=== PATIENT | female | born 1950 | race Caucasian/White ===

== ENCOUNTER 2017-12-30 06:08 | Inpatient (IN) | payer MEDICARE ==
[~2017-12-30 06:08] MED LIST: Buffered Lidocaine 0.9% SYRIN* 5 ML/SYR SYRINGE INTRADERM ONE; Dexamethasone IV* 4 MG/ML 1 ML (4 MG) IV SLOW PU ONE; Famotidine IV* 10 MG/ML 2 ML (20 mg) IV ONE
[2017-12-30] MEDS ORDERED: Dexamethasone IV* 4 MG/ML 1 ML (4 MG) ONE (06:28)
[2017-12-30] MEDS ORDERED: Famotidine IV* 10 MG/ML 2 ML (20 mg) ONE (06:28)
[2017-12-30] MEDS ORDERED: Clindamycin 900 MG IVPREMIX(* 900 MG/50 ML SDV IV ONE (06:28)
[2017-12-30] MEDS ORDERED: HYDROcodone/ACETAMIN 5-325 MG* 1 TAB PO PRN (07:18)
[2017-12-30] MEDS ORDERED: oxyCODONE/Acetamin 5/325 MG* TAB PO PRN (07:18)
[2017-12-30] MEDS ORDERED: Bupivacaine 0.5% SDV PF* 30ML VIAL ONE (07:18)
[2017-12-30] MEDS ORDERED: Naloxone* 0.4 MG/ML 1 ML VIAL IV PRN (07:18)
[2017-12-30] MEDS ORDERED: PROCHLORPERAZINE INJ 5 MG/ML 2 ML VIAL IV PRN (07:18)
[2017-12-30] MEDS ORDERED: Propofol* 10 MG/ML 20 ML BTL IV PUSH ONE (07:31)
[2017-12-30] MEDS ORDERED: Mivacurium Chloride* 20 MG/10 ML VIAL IV ONE (07:31)
[2017-12-30] MEDS ORDERED: Lidocaine 2% PF * 5 ML VIAL ONE (07:31)
[2017-12-30] MEDS ORDERED: fentaNYL* 50 MCG/ML 2 ML VIAL (100 MCG VIAL) ONE ×2 (07:32→09:08)
[2017-12-30] MEDS ORDERED: EPHEDrine (Pressors)* 50 MG/ML VIAL ONE (07:50)
[2017-12-30] MEDS ORDERED: Phenylephrine IV* 40 MCG/ML 10 ML SYRINGE ONE (08:05)
[2017-12-30] MEDS ORDERED: Ondansetron INJ* 2 MG/ML VIAL IV ONE (08:20)
[2017-12-30] MEDS ORDERED: oxyCODONE/Acetamin 5/325 MG* TAB ONE (09:08)
[2017-12-30] MEDS: fentaNYL* 50 MCG/ML 2 ML VIAL (100 MCG VIAL) IV PRN ×2 (09:11→09:20)
[2017-12-30] MEDS ORDERED: Temazepam CAP* 15 MG PO PRN (09:14)
[2017-12-30] MEDS ORDERED: Ondansetron INJ* 2 MG/ML VIAL IV PRN (09:14)
[2017-12-30] MEDS ORDERED: diPHENhydraMINE IV* 50 MG/ML 1 ml VIAL (BENADRYL) IV PRN (09:14)
[2017-12-30] MEDS ORDERED: Morphine VIAL* 4 MG/ML VIAL (1 ml vial) IV PRN (09:14)
[2017-12-30] MEDS ORDERED: Albuterol HFA INHALER* 8 gm MDI INH PRN (09:21)
[2017-12-30] MEDS ORDERED: Albuterol 2.5 MG/3 ML NEB.SOL* (0.083%) INH PRN (09:21)
[2017-12-30] MEDS ORDERED: oxyCODONE TAB* 5 MG TAB PO PRN (09:21)
[2017-12-30] MEDS ORDERED: Lactobacillus Acidophilus* 1 TAB PO PRN (09:21)
[2017-12-30] MEDS ORDERED: Carbidopa/Levodop 25/100 MG TAB(*) PO SCH (09:30)
[2017-12-30] MEDS ORDERED: Gabapentin CAP(*) 300 MG PO SCH (10:00)
[2017-12-30] MEDS ORDERED: Enoxaparin(*) 40 MG/0.4 ML SYR SUBCUT SCH (10:00)
[2017-12-30] MEDS ORDERED: LORazepam TAB(*) 1 MG PO SCH (13:00)
[2017-12-30] MEDS: Carbidopa/Levodop 25/100 MG TAB(*) PO SCH ×4 (13:12→21:26)
[2017-12-30] MEDS: Polyethylene Glycol 3350* 17 GM PACKET PO SCH ×2 (13:13→21:28)
[2017-12-30] MEDS: Docusate CAP* 100 MG PO SCH ×2 (13:13→21:28)
[2017-12-30] MEDS ORDERED: Gabapentin CAP(*) 300 MG PO ONE (13:15)
[2017-12-30] MEDS ORDERED: Gabapentin CAP(*) 300 MG ONE (13:21)
[2017-12-30] MEDS: Gabapentin CAP(*) 300 MG PO SCH ×2 (13:23→17:44)
[2017-12-30] MEDS: oxyCODONE TAB* 5 MG TAB PO PRN ×3 (13:26→22:53)
[2017-12-30] MEDS: Clindamycin 600 MG IVPREMIX(* 600 MG/50 ML SDV IV SCH (16:00)
[2017-12-30] MEDS: Lactulose* 15 ML UDC PO SCH (17:41)
[2017-12-30] MEDS ORDERED: Docusate CAP* 100 MG PO SCH (21:00)
[2017-12-30] MEDS: Magnesium Hydroxide LIQ* 30 ML UDC PO SCH (21:23)
[2017-12-30] MEDS: LORazepam TAB(*) 1 MG PO SCH (21:28)
[2017-12-30] MEDS: Montelukast Sodium TAB* 10 MG PO SCH (21:29)
[2017-12-30] MEDS ORDERED: Ondansetron 40 MG VIAL* 2 MG/ML 20 ML VIAL IV PRN (23:47)
[2017-12-31] MEDS: Clindamycin 600 MG IVPREMIX(* 600 MG/50 ML SDV IV SCH ×2 (00:15→08:41)
[2017-12-31] MEDS: Cyclobenzaprine TAB* 10 MG PO PRN ×2 (00:21→08:41)
[2017-12-31] MEDS: Carbidopa/Levodop 25/100 MG TAB(*) PO SCH ×7 (01:55→22:15)
[2017-12-31] MEDS: LORazepam TAB(*) 1 MG PO SCH ×5 (01:57→22:14)
[2017-12-31] MEDS: Gabapentin CAP(*) 300 MG PO SCH ×4 (02:00→19:23)
[2017-12-31] MEDS: oxyCODONE TAB* 5 MG TAB PO PRN ×2 (06:10→12:47)
[2017-12-31] MEDS: Sertraline* 25 MG TAB PO SCH (06:11)
[2017-12-31] MEDS: Folic Acid TAB* 1 MG PO SCH (06:11)
[2017-12-31] MEDS: Omeprazole CAP* 20 MG PO SCH (06:14)
--- NOTE | 2017-12-31 08:07 | OP ---
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 OPERATIVE PROCEDURE: Extensive posterior medial release and plantar fascia release. DESCRIPTION OF PROCEDURE: The patient was taken to the operating room, general anesthesia administered. We made a 8 cm longitudinal incision centered on the medial malleolus. Through this incision proximally, we isolated the Achilles tendon and performed a 5 cm longitudinal Z lengthening. We then opened up the sheath, the posterior tibial tendon, and performed a 5 cm Z lengthening of that tendon as well as FDL which lay just deep to it. Once these tendons were out of the way, we dissected further around the posterior tibia to locate the FHL, which was released at this point, not lengthened. We also performed release of the capsule, the posterior tibiotalar joint and the subtalar joint. Neuro- vascular bundle was kept protected. This corrected the ankle to neutral position. We closed the wound after repairing the sheath with 2-0 Vicryl sutures. The Achilles tendon side to side 2-0 Vicryl, posterior tibial side to side 2-0 Vicryl and FDL side to side with 2-0 Vicryl. Subcutaneous closure of 2 -0 Vicryl and hue for the skin. We also performed percutaneous release of the plantar fascia with a 1 cm incision along the proximal medial border. This was also closed with hue. A compression dressing, plaster splint was applied. The patient demonstrated good capillary refill of the toes at the end of the procedure. [id number]/[facility] #: [id number] VISHAL
[2017-12-31] MEDS: Cholecalciferol TAB* 1000 UNITS PO SCH (08:40)
[2017-12-31] MEDS: Prenatal Vitamin TAB PO SCH (08:41)
[2017-12-31] MEDS: Polyethylene Glycol 3350* 17 GM PACKET PO SCH ×3 (08:41→22:14)
[2017-12-31] MEDS: Docusate CAP* 100 MG PO SCH ×3 (08:41→22:13)
[2017-12-31] MEDS: Calcium/Vitamin D TAB 250/125* TAB PO SCH (08:41)
[2017-12-31] MEDS: Magnesium Hydroxide LIQ* 30 ML UDC PO SCH ×2 (08:42→22:14)
[2017-12-31] MEDS: Enoxaparin(*) 40 MG/0.4 ML SYR SUBCUT SCH (08:52)
[2017-12-31] MEDS ORDERED: POTASSIUM 99 MG PO SCH (09:00)
--- NOTE | 2017-12-31 09:00 | PN ---
Progress Note - Progress Note Date of Service: 12/31/17 SOAP: Subjective: [Pt was seen sitting up in chair today. She states that she is having issues with being to cold or too hot. She states that pain is a little better in her foot today than yesterday. She feels unhappy about not being able to move around as she is used to "bopping around the house" when at home. She would like to talk to one of the doctors or the PA that was in the surgery. She denies any chest pain, SOB ] Objective: [General: Pt is alert and awake. NAD MSK, RLE: Dressing is clean, dry and intact. toes are exposed and there is sensation. She is able to slightly wiggle the toes. Able to bend and extend knee. ] Vital Signs Temp 98.5 F 12/31/17 07:35 Pulse 93 12/31/17 07:35 Resp 16 12/31/17 08:48 BP 99/49 12/31/17 07:35 Pulse Ox 92 12/31/17 07:35 Intake & Output 12/30/17 12/31/17 12/31/17 18:59 06:59 18:59 Intake Total 2047 1481.9 Output Total 800 350 Balance 1247 1131.9 Intake: IV Fluids 1405 641.9 ABX - CLINDAMYCIN 52.9 LR 1350 589 IVPB 322 LR 322 Oral 320 840 Output: Urine 800 350 Other: Estimated Void Large Medium # Bowel Movements 0 Estimated Blood Loss MIN Comment # Voids 1 1 Assessment: [S/P Right ankle posterior medial release on 12/30/2017] Plan: [- Continue with current pain medication - Continue with PT/OT -Finish post op abx PMRU consult today ]
[2017-12-31] MEDS: Lactulose* 15 ML UDC PO SCH (19:23)
[2017-12-31] MEDS: Montelukast Sodium TAB* 10 MG PO SCH (22:14)
[2018-01-01] MEDS: LORazepam TAB(*) 1 MG PO SCH ×2 (01:33→09:06)
[2018-01-01] MEDS: Carbidopa/Levodop 25/100 MG TAB(*) PO SCH ×3 (01:34→09:17)
[2018-01-01] MEDS: Gabapentin CAP(*) 300 MG PO SCH ×2 (01:37→06:09)
[2018-01-01] MEDS: Folic Acid TAB* 1 MG PO SCH (06:08)
[2018-01-01] MEDS: Sertraline* 25 MG TAB PO SCH (06:08)
[2018-01-01] MEDS: Omeprazole CAP* 20 MG PO SCH (06:08)
[2018-01-01] MEDS: Magnesium Hydroxide LIQ* 30 ML UDC PO SCH (09:05)
[2018-01-01] MEDS: Enoxaparin(*) 40 MG/0.4 ML SYR SUBCUT SCH (09:05)
[2018-01-01] MEDS: Polyethylene Glycol 3350* 17 GM PACKET PO SCH (09:05)
[2018-01-01] MEDS: Cholecalciferol TAB* 1000 UNITS PO SCH (09:06)
[2018-01-01] MEDS: Calcium/Vitamin D TAB 250/125* TAB PO SCH (09:06)
[2018-01-01] MEDS: Docusate CAP* 100 MG PO SCH (09:06)
[2018-01-01] MEDS: Prenatal Vitamin TAB PO SCH (09:17)
--- NOTE | 2018-01-01 10:38 | PN ---
Progress Note - Progress Note Date of Service: 01/01/18 SOAP: Subjective: [Pt was seen laying in bed this morning. She states that she would like to no longer use the commode. . She states that pain is a little better in her foot today than yesterday. She denies any chest pain, SOB Spoke to the pts nursing staff. They report that the pt has been noncompliant with NWB of the RLE. They also stated that she froze on the commode last night and needed to utilize a milla lift in order to move the pt back to bed and attempt to avoid a fall. [facility] did not accept the pt. Therefore we will start down the necessary path to initiate placement to a rehab facility. ] Objective: [General: Pt is alert and awake. NAD MSK, RLE: Dressing is clean, dry and intact. toes are exposed and there is sensation. She is able to slightly wiggle the toes. Able to bend and extend knee. ] Vital Signs Temp 98.8 F 01/01/18 09:05 Pulse 88 01/01/18 09:05 Resp 16 01/01/18 09:06 BP 97/42 01/01/18 09:05 Pulse Ox 94 01/01/18 09:05 Intake & Output 12/31/17 01/01/18 01/01/18 18:59 06:59 18:59 Intake Total 560 500 360 Output Total 450 600 Balance 110 -100 360 Intake: Oral 560 500 360 Output: Urine 450 600 Other: Estimated Void Medium # Voids 1 Assessment: [S/P Right ankle posterior medial release on 12/30/2017] Plan: [- Continue with current pain medication prn - Continue with PT/OT - Based on information from nursing staff it would be in the best interest of the pt to continue to use the commode - Reviewed what Non weight bearing of the right lower extremity means - Await placement to a rehab facility. ]
[2018-01-01 11:02] VITALS: BP 120/56
== END 2018-01-01 11:20 | DRG 502 ==
LOC: OR 06:08 → SSU 09:14 → OBSVTOIN 12-31 15:00 → SSU 12-31 20:17
PROVIDERS: ADMIT Orthopaedic Surgery; ATTEND Orthopaedic Surgery
PROC: 0LNN0ZZ Release Right Lower Leg Tendon, Open Approach (ICD-10-PCS; principal; 2017-12-31)
PROC: 0KN Muscles, Release (ICD-10-PCS; 2017-12-31)
DX: M24.571 Contracture, right ankle (principal); M48.00 Spinal stenosis, site unspecified; F41.9 Anxiety disorder, unspecified; G20 Parkinson's disease; M21.171 Varus deformity, not elsewhere classified, right ankle; M21.6X1 Other acquired deformities of right foot; Z91.19 Patient's noncompliance with other medical treatment and regimen; Z86.73 Personal history of transient ischemic attack (TIA), and cerebral infarction without residual deficits; Z88.0 Allergy status to penicillin; Z88.2 Allergy status to sulfonamides; Z88.8 Allergy status to other drugs, medicaments and biological substances
CPT/HCPCS: A9270-GY; G8978-GP-CM; G8979-GP-CI; G8987-GO-CL; G8988-GO-CI; G8989-GO-CI; J1100; J1650; J2405; J2704; J3010

== ENCOUNTER 2018-01-01 11:19 | Inpatient (IN) | payer MEDICARE ==
[2018-01-01] MEDS ORDERED: Magnesium Hydroxide LIQ* 30 ML UDC PO PRN (12:37)
[2018-01-01] MEDS ORDERED: Carbidopa/Levodop 25/100 MG TAB(*) ONE (12:39)
[2018-01-01] MEDS: Carbidopa/Levodop 25/100 MG TAB(*) PO ONE ×2 (12:40→12:45)
[2018-01-01] MEDS ORDERED: Albuterol HFA INHALER* 8 gm MDI INH PRN (13:04)
[2018-01-01] MEDS ORDERED: Gabapentin CAP(*) 300 MG ONE (14:49)
[2018-01-01] MEDS: Docusate CAP* 100 MG PO SCH ×2 (15:21→20:48)
[2018-01-01] MEDS: Carbidopa/Levodop 25/100 MG TAB(*) PO SCH ×3 (15:23→20:50)
[2018-01-01] MEDS: LORazepam TAB(*) 1 MG PO SCH ×2 (15:23→20:48)
[2018-01-01] MEDS: Potassium Chlor TAB* 10 MEQ TAB.ER PO SCH (15:30)
[2018-01-01] MEDS ORDERED: oxyCODONE TAB* 5 MG TAB PO PRN (17:58)
[2018-01-01] MEDS: Gabapentin CAP(*) 300 MG PO SCH (18:03)
[2018-01-01] MEDS: Lactulose* 15 ML UDC PO SCH (18:23)
[2018-01-01] MEDS: Montelukast Sodium TAB* 10 MG PO SCH (20:48)
[2018-01-01] MEDS ORDERED: Docusate CAP* 100 MG PO SCH (21:00)
--- NOTE | 2018-01-01 22:35 | HP ---
ADMISSION HISTORY AND PHYSICAL: DATE OF ADMISSION: 01/01/18 REASON FOR ADMISSION: Right ankle release; Parkinson's disease. HISTORY OF PRESENT ILLNESS: Ghazal Garza is a 67-year-old female. She has had Parkinson's disease for several years. She was diagnosed about 6 years ago. 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 She had a left hemiplegia initially, but this resolved. She was left with some memory deficits. About 18 months ago, she was admitted to [facility] after she had an episode of freezing, which was felt to be due to the way she was taking her medications. While in the hospital, they noticed contractures of her feet and ankles. She had a brace put on her left side and not improved, but the right side was never braced. She went to subacute rehab after she was hospitalized and after about a month, her right foot contracture got worse. Due to ongoing contracture and discomfort, she was seen by an orthopedic PA, who sent her to [facility]. She had an AFO fabricated for her right leg. When she first got the AFO, she fell over and fractured her right hip. She went to [facility] and had a right total hip replacement. After that, she went to subacute rehab in [place] where she stayed about 4 weeks. Meanwhile, her AFO had not been used. She was sent to see Dr. Aisha Ware in November with the hope that Botox injection might help. Dr. Ware felt the ankle was contracted and she was well past the point of being assisted with Botox. She was referred on to see Dr. Rousseau, the orthopedic surgeon. Dr. Rousseau felt she had a severely contracted right ankle causing significant functional limitations. He felt at that time, she needed surgery. Dr. Hopper also saw the patient and felt that she would need a posteromedial soft tissue release. She was admitted to [facility] on 12/30/17 and underwent a posterior soft tissue release of the ankle. She was put in a cast postoperatively and made nonweightbearing. Because of her Parkinson's disease, she is felt to have physical therapy and occupational therapy needs. She is now being admitted for inpatient rehab, so that she might return to independent living. PAST MEDICAL HISTORY: Significant for the aforementioned CVA with a hemorrhage. She has a history of Parkinson's disease and asthma. CURRENT MEDICATIONS: Include: 1. Albuterol inhaler. 2. She is on Sinemet 25/100. She takes 2-1/2 tablets 7 times a day. 3. She is on Lovenox and Coumadin for DVT prophylaxis. 4. She is on Neurontin for chronic pain. 5. She takes Ativan and Singulair as well. 6. She is also on Zoloft. ALLERGIES: The patient has allergies listed to PENICILLIN, DEMEROL. She did not tolerate SLOW-RELEASE SINEMET. SOCIAL HISTORY: The patient lives with her daughter and son-in-law in a two- lotus house. Her bedroom is upstairs. She was walking with a walker prior to admission. She is a nonsmoker, nondrinker. She also has had a wheelchair prior to admission. REVIEW OF SYSTEMS: The patient reports no current shortness of breath or chest pain. PHYSICAL EXAMINATION VITAL SIGNS: The patient's temperature is 98.8, blood pressure is 140/72, pulse 96, respirations 20. HEENT: Her extraocular movements appear to be intact. NECK: Her neck was supple. LUNGS: Sounded clear to auscultation bilaterally. HEART: Sounds are regular. S1 and S2 are audible. ABDOMEN: Soft and nontender. EXTREMITIES: Her right ankle is in a cast. She is able to wiggle the toes. NEUROLOGIC: She is awake, alert, oriented. Muscle strength appear to be 5/5, except around the right leg, which was 3/5 secondary to pain. FUNCTIONAL EXAM: She transfers with max assist. ASSESSMENT: 1. Parkinson's disease. 2. Posterolateral release of the right ankle contracture. PLAN: Integrate her into a comprehensive and therapeutic rehab program with the following goals: 1. Physical Therapy will work with the patient. They are going to work on functional transfer training, ambulation training, wheelchair mobilities. 2. Occupational Therapy will see the patient and work on her activities of daily living including toileting and toilet transfers. 3. Lovenox for DVT prophylaxis. 4. Adequate analgesia. 5. Her bowels will be regulated. 6. director of convention services will be closely involved to make sure that any services and equipment that the patient requires are in place prior to discharge. 7. Continue Neurontin for chronic pain. 8. For her asthma, we will continue her albuterol inhaler as well as her Singulair. 9. Family training as appropriate. 10. Home with appropriate services. ESTIMATED LENGTH OF STAY: 10 to 14 days. [id number]/[facility] #: [id number] VISHAL
[2018-01-02] MEDS: Carbidopa/Levodop 25/100 MG TAB(*) PO SCH ×7 (01:34→20:58)
[2018-01-02] MEDS: Gabapentin CAP(*) 300 MG PO SCH ×4 (01:35→18:05)
[2018-01-02] MEDS: LORazepam TAB(*) 1 MG PO SCH ×4 (01:37→20:57)
[2018-01-02 05:58] LABS: Hematocrit 32 % (35-47); Hemoglobin 11.1 g/dl (12.0-16.0); Mean Platelet Volume 7.1 um3 (7.4-10.4); Platelet Count 155 10^3/ul (150-450)
[2018-01-02] MEDS: Omeprazole CAP* 20 MG PO SCH (06:06)
[2018-01-02] MEDS: Sertraline* 25 MG TAB PO SCH (06:07)
[2018-01-02 06:20] LABS: EGFR Non-African American 70.5 (>60)
[2018-01-02] MEDS: Potassium Chlor TAB* 10 MEQ TAB.ER PO SCH (07:05)
[2018-01-02] MEDS: Polyethylene Glycol 3350* 17 GM PACKET PO SCH (08:51)
[2018-01-02] MEDS: Enoxaparin(*) 40 MG/0.4 ML SYR SUBCUT SCH (08:52)
[2018-01-02] MEDS: Docusate CAP* 100 MG PO SCH ×3 (08:53→21:03)
[2018-01-02] MEDS: Folic Acid TAB* 1 MG PO SCH (08:53)
[2018-01-02] MEDS: Calcium/Vitamin D TAB 250/125* TAB PO SCH (08:53)
[2018-01-02] MEDS: Cholecalciferol TAB* 1000 UNITS PO SCH (08:53)
[2018-01-02] MEDS: Prenatal Vitamin TAB PO SCH (09:26)
[2018-01-02] MEDS: Lactulose* 15 ML UDC PO SCH (18:04)
--- NOTE | 2018-01-02 19:57 | PN ---
Progress Note Date of Service: 01/02/18 Note: SENDY GILLETTE was visited. Therapy notes read and reviewed. Some trouble with pain in the ankle. Also spasms, but Flexeril helps those. Tremors tonight Current Medications: Active Medications Generic Name Dose Route Start Last Admin Trade Name Freq PRN Reason Stop Dose Admin Acetaminophen 650 mg 01/01/18 12:37 Tylenol Tab* PO Q6H PRN FEVER/PAIN Albuterol 2 puff 01/01/18 13:04 Ventolin Hfa Inhaler* INH Q6H PRN SOB/WHEEZING Calcium/Vitamin D 1 tab 01/02/18 09:00 01/02/18 08:53 Oscal D Tab 250/125* PO 1 tab DAILY ARNIE Administration Carbidopa/Levodopa 2.5 tab 01/01/18 15:00 01/02/18 14:53 Sinemet 25/100 Tab(*) PO 2.5 tab 0600,0900,1200,1500 ARNIE Administration Carbidopa/Levodopa 2.5 tab 01/01/18 18:00 01/02/18 18:06 Sinemet 25/100 Tab(*) PO 2.5 tab 0130,1800,2100 ARNIE Administration Cholecalciferol 2,000 units 01/02/18 09:00 01/02/18 08:53 Vitamin D Tab* PO 2,000 units DAILY ARNIE Administration Docusate Sodium 100 mg 01/01/18 14:00 01/02/18 12:16 Colace Cap* PO Not Given TID ARNIE Enoxaparin Sodium 40 mg 01/02/18 09:00 01/02/18 08:52 Lovenox(*) SUBCUT 40 mg Q24H ARNIE Administration Folic Acid 1 mg 01/02/18 09:00 01/02/18 08:53 Folvite Tab* PO 1 mg DAILY ARNIE Administration Gabapentin 600 mg 01/01/18 18:00 01/02/18 18:05 Neurontin Cap(*) PO 600 mg 0600,1800 ARNIE Administration Gabapentin 900 mg 01/02/18 01:30 01/02/18 12:12 Neurontin Cap(*) PO 900 mg 0130,1200 ARNIE Administration Lactulose 15 ml 01/01/18 18:00 01/02/18 18:04 Lactulose* PO Not Given 1800 ARNIE Lorazepam 1 mg 01/01/18 15:00 01/02/18 14:53 Ativan Tab(*) PO 1 mg 0130,0900,1500,2100 ARNIE Administration Magnesium Hydroxide 30 ml 01/01/18 12:37 Milk Of Magnesia Liq* PO Q6H PRN CONSTIPATION Montelukast Sodium 10 mg 01/01/18 21:00 01/01/18 20:48 Singulair Tab* PO 10 mg BEDTIME ARNIE Administration Multivitamins 1 tab 01/02/18 09:00 01/02/18 09:26 Vitamin Tab* PO 1 tab DAILY ARNIE Administration Omeprazole 20 mg 01/02/18 06:00 01/02/18 06:06 Prilosec Cap* PO 20 mg 0600 ARNIE Administration Oxycodone HCl 5 mg 01/01/18 17:58 Roxycodone Tab* PO Q4H PRN PAIN - MODERATE TO SEVERE Oxycodone HCl 10 mg 01/01/18 17:58 Roxycodone Tab* PO Q4H PRN PAIN - SEVERE Polyethylene Glycol/Electrolytes 17 gm 01/02/18 09:00 01/02/18 08:51 Miralax* PO 17 gm DAILY ARNIE Administration Potassium Chloride 10 meq 01/01/18 16:00 01/02/18 07:05 Klor Con Er Tab* PO 10 meq DAILY ARNIE Administration Senna 2 tab 01/01/18 12:37 Senokot Tab* PO BEDTIME PRN CONSTIPATION Sertraline HCl 25 mg 01/02/18 06:00 01/02/18 06:07 Zoloft* PO 25 mg 0600 ARNIE Administration Vital Signs: Vital Signs Temp Pulse Resp BP Pulse Ox 98.2 F 95 18 150/85 97 01/02/18 15:53 01/02/18 15:53 01/02/18 18:12 01/02/18 15:53 01/02/18 15:53 Lab Results: Laboratory Results - last 24 hr 01/02/18 01/02/18 05:51 05:51 Hgb 11.1 L Hct 32 L Plt Count 155 MPV 7.1 L BUN 19 Creatinine 0.81 Est GFR ( Amer) 90.7 Est GFR (Non-Af Amer) 70.5 Exam: HEENT: EOMI LUNGS: Clear HEART: regular rhythm ABDOMEN: Soft, +BS EXTREMITIES: Right ankle in cast. NEUROLOGIC: Resting tremor in legs. Exam non focal Assessment/Plan: 1. Right ankle release: NWB RLE. PT/OT 2. Parkinsons Disease: Sinemet @ 0600, 0900, 1200, 1500, 1800, 2100 and 0130. Ativan. 3. DVT Prophylaxis: Lovenox 4. Analgesia: Oxycodone as needed/Tylenol 5. Asthma: Singulair/Albuterol 6. Advanced Directives: Full code 01/02/18 20:02
[2018-01-02] MEDS: Montelukast Sodium TAB* 10 MG PO SCH (20:57)
[2018-01-03] MEDS: Carbidopa/Levodop 25/100 MG TAB(*) PO SCH ×7 (01:32→20:43)
[2018-01-03] MEDS: Gabapentin CAP(*) 300 MG PO SCH ×4 (01:33→17:20)
[2018-01-03] MEDS: LORazepam TAB(*) 1 MG PO SCH ×4 (01:33→20:43)
[2018-01-03] MEDS: Omeprazole CAP* 20 MG PO SCH (06:01)
[2018-01-03] MEDS: Sertraline* 25 MG TAB PO SCH (06:01)
[2018-01-03 06:28] LABS: ABS Basophils 0 10^3/ul (0-0.2); ABS Eosinophils 0.2 10^3/ul (0-0.6); ABS Lymphocytes 0.9 10^3/ul (1.0-4.8); ABS Monocytes 0.4 10^3/ul (0-0.8); ABS Neutrophils 2.9 10^3/ul (1.5-7.7); ABS Nucleated RBC 0 10^3/ul; Eosinophil % 5.4 % (0-6); Hematocrit 34 % (35-47); Hemoglobin 11.7 g/dl (12.0-16.0); Lymphocyte % 20.3 % (25-47); Mean Corpuscular HGB Conc 35 g/dl (31-36); Mean Corpuscular Hemoglobin 32 pg (27-31); Mean Corpuscular Volume 90 fL (80-97); Mean Platelet Volume 7.3 um3 (7.4-10.4); Nucleated Red Blood Cells % 0.1; Platelet Count 178 10^3/ul (150-450); Red Blood Count 3.71 10^6/ul (4.00-5.40); Red Cell Distribution Width 13 % (10.5-15); White Blood Count 4.5 10^3/ul (3.5-10.8)
[2018-01-03 06:44] LABS: EGFR Non-African American 79.5 (>60)
[2018-01-03] MEDS: Potassium Chlor TAB* 10 MEQ TAB.ER PO SCH (06:59)
[2018-01-03] MEDS: Calcium/Vitamin D TAB 250/125* TAB PO SCH (08:52)
[2018-01-03] MEDS: Folic Acid TAB* 1 MG PO SCH (08:53)
[2018-01-03] MEDS: Enoxaparin(*) 40 MG/0.4 ML SYR SUBCUT SCH (08:53)
[2018-01-03] MEDS: Docusate CAP* 100 MG PO SCH ×3 (08:53→20:42)
[2018-01-03] MEDS: Cholecalciferol TAB* 1000 UNITS PO SCH (08:53)
[2018-01-03] MEDS: Polyethylene Glycol 3350* 17 GM PACKET PO SCH (08:54)
[2018-01-03] MEDS: Prenatal Vitamin TAB PO SCH (08:54)
--- NOTE | 2018-01-03 11:39 | PN ---
Progress Note Date of Service: 01/03/18 - ] Note: SENDY GILLETTE was visited. Nursing and therapy notes read and reviewed. No chest pain, shortness of breath or abdominal pain. Only discomfort is her right ankle. Current Medications: Active Medications Generic Name Dose Route Start Last Admin Trade Name Freq PRN Reason Stop Dose Admin Acetaminophen 650 mg 01/01/18 12:37 Tylenol Tab* PO Q6H PRN FEVER/PAIN Albuterol 2 puff 01/01/18 13:04 Ventolin Hfa Inhaler* INH Q6H PRN SOB/WHEEZING Calcium/Vitamin D 1 tab 01/02/18 09:00 01/03/18 08:52 Oscal D Tab 250/125* PO 1 tab DAILY ARNIE Administration Carbidopa/Levodopa 2.5 tab 01/01/18 15:00 01/03/18 08:54 Sinemet 25/100 Tab(*) PO 2.5 tab 0600,0900,1200,1500 ARNIE Administration Carbidopa/Levodopa 2.5 tab 01/01/18 18:00 01/03/18 01:32 Sinemet 25/100 Tab(*) PO 2.5 tab 0130,1800,2100 ARNIE Administration Cholecalciferol 2,000 units 01/02/18 09:00 01/03/18 08:53 Vitamin D Tab* PO 2,000 units DAILY ARNIE Administration Docusate Sodium 100 mg 01/01/18 14:00 01/03/18 08:53 Colace Cap* PO Not Given TID ARNIE Enoxaparin Sodium 40 mg 01/02/18 09:00 01/03/18 08:53 Lovenox(*) SUBCUT 40 mg Q24H ARNIE Administration Folic Acid 1 mg 01/02/18 09:00 01/03/18 08:53 Folvite Tab* PO 1 mg DAILY ARNIE Administration Gabapentin 600 mg 01/01/18 18:00 01/03/18 05:59 Neurontin Cap(*) PO 600 mg 0600,1800 ARNIE Administration Gabapentin 900 mg 01/02/18 01:30 01/03/18 01:33 Neurontin Cap(*) PO 900 mg 0130,1200 ARNIE Administration Lactulose 15 ml 01/01/18 18:00 01/02/18 18:04 Lactulose* PO Not Given 1800 ARNIE Lorazepam 1 mg 01/01/18 15:00 01/03/18 08:53 Ativan Tab(*) PO 1 mg 0130,0900,1500,2100 ARNIE Administration Magnesium Hydroxide 30 ml 01/01/18 12:37 Milk Of Magnesia Liq* PO Q6H PRN CONSTIPATION Montelukast Sodium 10 mg 01/01/18 21:00 01/02/18 20:57 Singulair Tab* PO 10 mg BEDTIME ARNIE Administration Multivitamins 1 tab 01/02/18 09:00 01/03/18 08:54 Vitamin Tab* PO 1 tab DAILY ARNIE Administration Omeprazole 20 mg 01/02/18 06:00 01/03/18 06:01 Prilosec Cap* PO 20 mg 0600 ARNIE Administration Oxycodone HCl 5 mg 01/01/18 17:58 Roxycodone Tab* PO Q4H PRN PAIN - MODERATE TO SEVERE Oxycodone HCl 10 mg 01/01/18 17:58 Roxycodone Tab* PO Q4H PRN PAIN - SEVERE Polyethylene Glycol/Electrolytes 17 gm 01/02/18 09:00 01/03/18 08:54 Miralax* PO Not Given DAILY ARNIE Potassium Chloride 10 meq 01/01/18 16:00 01/03/18 06:59 Klor Con Er Tab* PO 10 meq DAILY ARNIE Administration Senna 2 tab 01/01/18 12:37 Senokot Tab* PO BEDTIME PRN CONSTIPATION Sertraline HCl 25 mg 01/02/18 06:00 01/03/18 06:01 Zoloft* PO 25 mg 0600 ARNIE Administration Vital Signs: Vital Signs Temp Pulse Resp BP Pulse Ox 97.9 F 93 16 151/81 100 01/03/18 05:59 01/03/18 05:59 01/03/18 08:53 01/03/18 05:59 01/03/18 05:59 Lab Results: Laboratory Results - last 24 hr 01/03/18 01/03/18 06:04 06:04 WBC 4.5 RBC 3.71 L Hgb 11.7 L Hct 34 L MCV 90 MCH 32 H MCHC 35 RDW 13 Plt Count 178 MPV 7.3 L Neut % (Auto) 65.3 Lymph % (Auto) 20.3 L [place] % (Auto) 8.3 H Eos % (Auto) 5.4 Baso % (Auto) 0.7 Absolute Neuts (auto) 2.9 Absolute Lymphs (auto) 0.9 L Absolute Monos (auto) 0.4 Absolute Eos (auto) 0.2 Absolute Basos (auto) 0 Absolute Nucleated RBC 0 Nucleated RBC % 0.1 Sodium 140 Potassium 4.0 Chloride 105 Carbon Dioxide 29 Anion Gap 6 BUN 18 Creatinine 0.73 Est GFR ( Amer) 102.3 Est GFR (Non-Af Amer) 79.5 BUN/Creatinine Ratio 24.7 H Glucose 99 Calcium 9.2 Total Bilirubin 0.40 AST 13 ALT 5 L Alkaline Phosphatase 57 Total Protein 5.7 L Albumin 3.6 Globulin 2.1 Albumin/Globulin Ratio 1.7 Exam: GEN: no acute distress. Alert and appropriate. LUNGS: clear to auscultation bilaterally. CV: regular rate and rhythm ABD: + bowel sounds, soft, non-tender, non-distended. EXT: right leg in partial cast/splint with LÓPEZ. No left leg edema. Able to wiggle right toes with sensation. Assessment/Plan: 67yo woman with Parkinsons disease s/p right ankle release for contracture 1. Right ankle release: NWB RLE. PT/OT 2. Parkinsons Disease: Sinemet @ 0600, 0900, 1200, 1500, 1800, 2100 and 0130. Ativan. 3. DVT Prophylaxis: Lovenox 4. Analgesia: Oxycodone as needed/Tylenol 5. Asthma: Singulair/Albuterol 6. Advanced Directives: Full code 7. Estimated LOS: to be discussed with team at IPOC meeting. 01/03/18 11:40
--- NOTE | 2018-01-03 12:52 | PMRUTEAM ---
PMRU: Team Meeting Current Status: Nursing: Current Status Skin Deviations [Buttocks] Other Skin Deviations [Right Foot] Incision Skin Deviation Description [ redness Buttocks] Skin Deviation Description [ caste in place Right Foot] Physical Therapy: Current Status Bed Mobility Assistance mod assist x2 Transfer Moblility Assistance Min Assist to Mod Assist x2 and at times milla Transfer/Bed Mobility Rolling Walker Recommended Devices Ambulation Assistance Unable Ambulation Assistive Devices Rolling Walker Stairs Assistance not tested and unable Number of Stairs Flight Manual Wheelchair Control/ Bilateral UE's Technique Wheelchair Propulsion Ability Standby Assistance,Minimum Assistance Wheelchair Distance (ft) 200, 50 Objective Comments patient has difficulty with problem solving mobiltiy. patient tends to get quite anxious about avoiding obstacles despite wide clearances ( is worried about fitting through double doors to gym with W/C, avoiding stationary objects in hallway) worked on reducing anxiety in mobility this session. Occupational Therapy: Current Status Upper Body Dressing Supervision Lower Body Dressing Mod Assist,2 Person Assist Bathing Mod Assist,2 Person Assist Toileting Total Assist,2 Person Assist Toilet Transfer Mod Assist,2 Person Assist Eating Independent Rec Therapy: Current Status Summary of Assessment and Pt. was open to conversation but first wanted help Clinical Impression with unpacking and organizing her stuff, assisted pt. with this. Pt. states she enjoys her life and is looking forward to recreational activities while on the unit but only if she receives her medications at the correct time. Treatment Goals Pt. will engage in leisure activities while on the unit. Treatment Plan Provide RT services and encourage involvement. Provide support as needed. Social Work: Current Status Discharge Plan return home with home care svs and family support Potential for Family Training pt's daughter Anticipated Discharge Home Destination Discharge With home care svs and family support Goals: Physical Therapy: Initial Goals Bed Mobility Assistance Independent Transfer Mobility Assistance Independent Transfer/Bed Mobility Rolling Walker Recommended Devices Ambulation unable Ambulation Recommended Devices Rolling Walker Ambulation Distance 5 Wheelchair Propulsion Ability Independent Wheelchair Distance (ft) 150 Stairs Assistance contact guard Stair Recommended Devices Two Rails Number of Stairs 13 Home Exercise Program Independent Assistance Occupational Therapy: Initial Goals Goals to be Completed in (Days 21-28 ) Upper Body Bathing Routine Supervision/Set Up Lower Body Bathing Routine Supervision/Set Up Upper Body Dressing Routine Independent Lower Body Dressing Routine Modified Independent with Toilet Hygeine and Clothing Modified Independent with Management Routine Toilet Transfer Routine Modified Independent with Step-In Shower Transfer Supervision/Set Up Routine Functional Transfers for ADL Modified Independent with Grooming Routine Independent Feeding Routine Independent Speech therapy: will ask for evaluation Social Work: Goals Discharge Plan return home with home care svs and family support Potential for Family Training pt's daughter Anticipated Discharge Home Destination Discharge With home care svs and family support Care Plan: Care Plan ADL's - Improve/Maintain Start: 01/01/18 16:18 Freq: DAILY Status: Active Target: Protocol: Activity Type Activity Date Activity User E-Sign Co-Sign Detail Recorded Client Recorded Date Recorded By Document 01/02/18 16:00 [id number] 01/02/18 16:00 [id number] 01/02/18 16:00 PMRU Outcome: ADL's/ADL Transfers Orders/Interventions Occupational Therapy Evaluation & Treatment Communication Tool in Patient Room Device Yes Address Deficits Secondary To: Right ankle/ foot sx Patient to receive OT 5x/wk for 60-120 Therex min/day Self Care Management Group Therapy UE/LE ADL's with Assist Yes: Tahira/ supervision for bathing ADL Transfers with Assist Yes: Tahira Toileting: Transfers,Clothing Management Yes: Tahira ,Hygeine w/Assist Light Kitchen/Laundry w/Assist No Outcome/Goals Met Pt participated fair in ADL treatment session with assistance and encouragement to complete tasks as independently as possible, did well with AE training for LE dressing with encouragement. Coping/Psych-Improve/Maintain Start: 01/01/18 16:08 Freq: DAILY Status: Active Target: Protocol: Activity Type Activity Date Activity User E-Sign Co-Sign Detail Recorded Client Recorded Date Recorded By Document 01/03/18 00:32 [id number] 01/03/18 00:33 [id number] 01/03/18 00:32 PMRU Outcome: Coping/Psychosocial Coping Outcome/Goals Verbalization of Acceptance of Rehab Admit Verbalization of Sense of Control Over Health Status Utilization of Appropriate Problem Solving Techniques Willingness to Participate in Treatment Plan and Basic Needs Utilization of Available Support Systems Psychosocial Outcome/Goals Maintain/ Improve Emotional Health Demonstrates Knowledge of Healthy Coping Mechanisms Available Cooperate/ Participate in Plan Progression Toward Outcome/Goals - Progressing Coping Progression Toward Outcome/Goals - Progressing Psychosocial DVT Prophylaxis- Improve/Maintain Start: 01/01/18 16:08 Freq: DAILY Status: Active Target: Protocol: Activity Type Activity Date Activity User E-Sign Co-Sign Detail Recorded Client Recorded Date Recorded By Document 01/03/18 00:32 [id number] 01/03/18 00:33 [id number] 01/03/18 00:32 PMRU Outcome: DVT Prophylaxis Outcome/Goals Remains Free of DVT Complies with DVT Prophylaxis /Treatment Demonstrates Knowledge of DVT Prevention/ Treatment TEDS Stockings on Every AM, Off at HS Progression Toward Outcome/Goals Progressing Discharge Planning - Improve/Maintain Start: 01/01/18 16:08 Freq: DAILY Status: Active Target: Protocol: Activity Type Activity Date Activity User E-Sign Co-Sign Detail Recorded Client Recorded Date Recorded By Document 01/03/18 00:32 [id number] 01/03/18 00:32 [id number] 01/03/18 00:32 PMRU Outcome: Discharge Planning Update Patient Family No Outcome/Goals Demonstrates Understanding of Discharge Plan Progression Toward Outcome/Goals Progressing Education-Improve/Maintain Start: 01/01/18 16:08 Freq: DAILY Status: Active Target: Protocol: Activity Type Activity Date Activity User E-Sign Co-Sign Detail Recorded Client Recorded Date Recorded By Document 01/03/18 00:32 [id number] [id number] 01/03/18 00:33 [id number] 01/03/18 00:32 PMRU Outcome: Education Outcome/Goals Demonstrates Skills Encourage Questions Progression Toward Outcome/Goals Progressing /GI-Improve/Maintain Start: 01/01/18 16:08 Freq: DAILY Status: Active Target: Protocol: Activity Type Activity Date Activity User E-Sign Co-Sign Detail Recorded Client Recorded Date Recorded By Document 01/03/18 00:32 [id number] 01/03/18 00:33 [id number] 01/03/18 00:32 PMRU Outcome: Genitourinary/ Gastrointestinal Genitourinary- Outcome/Goals Maintain/ Achieve Urinary Continence Maintain/ Achieve Adequate Urinary Output Remain Free of Hospital- Acquired UTI Gastrointestinal-Outcome/Goals Maintain/ Achieve Bowel Regularity in Accordance with Pt's Baseline Remain Free of Emesis Prevent Constipation Laxatives as Ordered Progression Toward Outcome/Goals - Progressing Progression Toward Outcome/Goals - GI Progressing Outcome/Goals Met Comment Pt up to Br Medication Administration Start: 01/01/18 16:08 Freq: DAILY Status: Active Target: Protocol: Activity Type Activity Date Activity User E-Sign Co-Sign Detail Recorded Client Recorded Date Recorded By Document 01/03/18 00:32 [id number] 01/03/18 00:33 [id number] 01/03/18 00:32 PMRU Outcome: Medication Administration Assess Patient Knowledge/Teach Med Yes Education for all Meds Outcome/Goals Family/ Caregiver Administer Medications at Home Demonstrates Understanding Other Outcome/Goals daughter assists with pill box at home Progression Towards Outcome/Goals Progressing Is Patient Going Home on Lovenox? No Mobility- Improve/Maintain Start: 01/01/18 18:55 Freq: DAILY Status: Active Target: Protocol: Activity Type Activity Date Activity User E-Sign Co-Sign Detail Recorded Client Recorded Date Recorded By Document 01/01/18 18:55 [id number] 01/01/18 18:57 [id number] 01/01/18 18:55 PMRU Outcome: Mobility Physical Therapy Evaluation and Yes Treatment Activity OOB with Assistance Yes NWB Yes: RLE Device Yes Assistance Yes Patient to be seen 5x/wk for 60-120 min/ Therex day for: Mobility Training Gait Training W/C Mobility Balance Other Outcome/Goals Maintain/ Achieve Baseline Mobility Status Improve Mobility Status Demonstrates Proper Use of Assistive Devices Free from Complications of Immobility Bed Mobility Yes: independent Transfers Yes: independent with rolling walker. W/C Mobility x ft Yes: independent BUE to 150' Up/Down Stairs Yes: independent TBD . Neurological- Improve/Maintain Start: 01/01/18 16:08 Freq: DAILY Status: Active Target: Protocol: Activity Type Activity Date Activity User E-Sign Co-Sign Detail Recorded Client Recorded Date Recorded By Document 01/03/18 00:32 [id number] 01/03/18 00:33 [id number] 01/03/18 00:32 PMRU Outcome: Neurological Weakness/Aphasia Weakness Weakness/Aphasia Comment generalized weakness Outcome/Goals Maintain/ Achieve Baseline Neurological Status Improve Neurological Status Prevent Avoidable Neurological Decline Maintain/ Improve Strength/ROM Progression Toward Outcome/Goals Progressing Pain/Comfort- Improve/Maintain Start: 01/01/18 16:08 Freq: DAILY Status: Active Target: Protocol: Activity Type Activity Date Activity User E-Sign Co-Sign Detail Recorded Client Recorded Date Recorded By Document 01/03/18 00:32 [id number] 01/03/18 00:33 [id number] 01/03/18 00:32 PMRU Outcome: Pain/Comfort Outcome/Goals Demonstrates Knowledge and Use of Available Comfort Measures Achieves Acceptable Comfort/Pain Level as Determined by Patient/Condit Maintain Comfort Level Allowing Patient to Fully Participate in Rehab Progression Toward Outcome/Goals Progressing Outcome/Goals Met Comment denies pain Safety- Improve/Maintain Start: 01/01/18 16:08 Freq: DAILY Status: Active Target: Protocol: Activity Type Activity Date Activity User E-Sign Co-Sign Detail Recorded Client Recorded Date Recorded By Document 01/03/18 00:32 [id number] 01/03/18 00:33 [id number] 01/03/18 00:32 PMRU Outcome: Safety Outcome/Goals Remain Free of Injury or Harm Cooperates with Safety Measures for Least Restrictive Environment Prevent Falls/ Injury Progression Toward Outcome/Goals Progressing Outcome/Goals Met Comment Pain in place Skin- Improve/Maintain Start: 01/01/18 16:08 Freq: DAILY Status: Active Target: Protocol: Activity Type Activity Date Activity User E-Sign Co-Sign Detail Recorded Client Recorded Date Recorded By Document 01/03/18 00:32 [id number] 01/03/18 00:33 [id number] 01/03/18 00:32 PMRU Outcome: Skin Skin Risk Level Medium Skin Orders Heels Off Bed Outcome/Goals Free from Decubitus Progression Toward Outcome/Goals Progressing Outcome/Goals Met Comment Caste in pain Medicine Note: Length of Stay: [3 weeks] Anticipated Discharge Destination: Home Tentative Discharge Date: [01/24/18] Discharged to: [home with family]
[2018-01-03] MEDS: Lactulose* 15 ML UDC PO SCH (17:18)
[2018-01-03] MEDS: oxyCODONE TAB* 5 MG TAB PO PRN (20:23)
[2018-01-03] MEDS: Montelukast Sodium TAB* 10 MG PO SCH (20:43)
[2018-01-04] MEDS: Carbidopa/Levodop 25/100 MG TAB(*) PO SCH ×7 (01:30→21:31)
[2018-01-04] MEDS: Gabapentin CAP(*) 300 MG PO SCH ×4 (01:31→17:59)
[2018-01-04] MEDS: LORazepam TAB(*) 1 MG PO SCH ×4 (01:32→21:31)
[2018-01-04] MEDS: Omeprazole CAP* 20 MG PO SCH (06:08)
[2018-01-04] MEDS: Sertraline* 25 MG TAB PO SCH (06:08)
[2018-01-04] MEDS: Potassium Chlor TAB* 10 MEQ TAB.ER PO SCH (07:35)
[2018-01-04] MEDS: Docusate CAP* 100 MG PO SCH ×3 (08:57→21:31)
[2018-01-04] MEDS: Polyethylene Glycol 3350* 17 GM PACKET PO SCH (08:57)
[2018-01-04] MEDS: Prenatal Vitamin TAB PO SCH (09:00)
[2018-01-04] MEDS: Calcium/Vitamin D TAB 250/125* TAB PO SCH (09:01)
[2018-01-04] MEDS: Cholecalciferol TAB* 1000 UNITS PO SCH (09:01)
[2018-01-04] MEDS: Folic Acid TAB* 1 MG PO SCH (09:01)
[2018-01-04] MEDS: Enoxaparin(*) 40 MG/0.4 ML SYR SUBCUT SCH (09:03)
--- NOTE | 2018-01-04 11:25 | PN ---
Progress Note Date of Service: 01/04/18 Note: SENDY GILLETTE was visited. Nursing and therapy notes read and reviewed. Patient requested lubricant eye drops prn like she uses at home. Also she takes an OTC potassium supplement at home. No chest pain, shortness of breath or abdominal pain. Current Medications: Active Medications Generic Name Dose Route Start Last Admin Trade Name Freq PRN Reason Stop Dose Admin Acetaminophen 650 mg 01/01/18 12:37 Tylenol Tab* PO Q6H PRN FEVER/PAIN Albuterol 2 puff 01/01/18 13:04 Ventolin Hfa Inhaler* INH Q6H PRN SOB/WHEEZING Calcium/Vitamin D 1 tab 01/02/18 09:00 01/04/18 09:01 Oscal D Tab 250/125* PO 1 tab DAILY ARNIE Administration Carbidopa/Levodopa 2.5 tab 01/01/18 15:00 01/04/18 08:59 Sinemet 25/100 Tab(*) PO 2.5 tab 0600,0900,1200,1500 ARNIE Administration Carbidopa/Levodopa 2.5 tab 01/01/18 18:00 01/04/18 01:30 Sinemet 25/100 Tab(*) PO 2.5 tab 0130,1800,2100 ARNIE Administration Cholecalciferol 2,000 units 01/02/18 09:00 01/04/18 09:01 Vitamin D Tab* PO 2,000 units DAILY ARNIE Administration Docusate Sodium 100 mg 01/01/18 14:00 01/04/18 08:57 Colace Cap* PO Not Given TID ARNIE Enoxaparin Sodium 40 mg 01/02/18 09:00 01/04/18 09:03 Lovenox(*) SUBCUT 40 mg Q24H ARNIE Administration Folic Acid 1 mg 01/02/18 09:00 01/04/18 09:01 Folvite Tab* PO 1 mg DAILY ARNIE Administration Gabapentin 600 mg 01/01/18 18:00 01/04/18 06:06 Neurontin Cap(*) PO 600 mg 0600,1800 ARNIE Administration Gabapentin 900 mg 01/02/18 01:30 01/04/18 01:31 Neurontin Cap(*) PO 900 mg 0130,1200 ARNIE Administration Lactulose 15 ml 01/01/18 18:00 01/03/18 17:18 Lactulose* PO Not Given 1800 ARNIE Lorazepam 1 mg 01/01/18 15:00 01/04/18 09:00 Ativan Tab(*) PO 1 mg 0130,0900,1500,2100 ARNIE Administration Magnesium Hydroxide 30 ml 01/01/18 12:37 Milk Of Magnesia Liq* PO Q6H PRN CONSTIPATION Montelukast Sodium 10 mg 01/01/18 21:00 01/03/18 20:43 Singulair Tab* PO 10 mg BEDTIME ARNIE Administration Multivitamins 1 tab 01/02/18 09:00 01/04/18 09:00 Vitamin Tab* PO 1 tab DAILY ARNIE Administration Omeprazole 20 mg 01/02/18 06:00 01/04/18 06:08 Prilosec Cap* PO 20 mg 0600 ARNIE Administration Oxycodone HCl 5 mg 01/01/18 17:58 Roxycodone Tab* PO Q4H PRN PAIN - MODERATE TO SEVERE Oxycodone HCl 10 mg 01/01/18 17:58 01/03/18 20:23 Roxycodone Tab* PO 10 mg Q4H PRN Administration PAIN - SEVERE Polyethylene Glycol/Electrolytes 17 gm 01/02/18 09:00 01/04/18 08:57 Miralax* PO Not Given DAILY ARNIE Polyvinyl Alcohol 1 drop 01/04/18 09:39 Polyvinyl Alcohol 1.4% Opth* BOTH EYES Q2H PRN DRY EYE Potassium Chloride 10 meq 01/01/18 16:00 01/04/18 07:35 Klor Con Er Tab* PO 10 meq DAILY ARNIE Administration Senna 2 tab 01/01/18 12:37 Senokot Tab* PO BEDTIME PRN CONSTIPATION Sertraline HCl 25 mg 01/02/18 06:00 01/04/18 06:08 Zoloft* PO 25 mg 0600 ARNIE Administration Vital Signs: Vital Signs Temp Pulse Resp BP Pulse Ox 98.0 F 76 16 140/64 97 01/04/18 04:52 01/04/18 04:52 01/04/18 09:04 01/04/18 04:52 01/04/18 08:00 Exam: GEN: no acute distress. Alert and appropriate. LUNGS: clear to auscultation bilaterally. CV: regular rate and rhythm ABD: + bowel sounds, soft, non-tender, non-distended. EXT: right leg in partial cast/splint with LÓPEZ. No left leg edema. Able to wiggle right toes with normal sensation. Assessment/Plan: 67yo woman with Parkinsons disease s/p right ankle release for contracture 1. Right ankle release: NWB RLE. PT/OT 2. Parkinsons Disease: Sinemet @ 0600, 0900, 1200, 1500, 1800, 2100 and 0130. Ativan. 3. DVT Prophylaxis: Lovenox 4. Analgesia: Oxycodone as needed/Tylenol 5. Asthma: Singulair/Albuterol 6. Dry eyes: ordered lubricant eye drops 7. Potassium: I advised her K was normal on routine labs. Her daughter can bring in her supplement if desired and we can see if it appears appropriate. 8. Advanced Directives: Full code 9. Estimated LOS: 01/24/18 01/04/18 11:23
[2018-01-04] MEDS: Artificial Tears* 15 ML BTL BOTH EYES PRN (11:51)
[2018-01-04] MEDS: Acetaminophen TAB* 325 MG PO PRN (17:58)
[2018-01-04] MEDS: Lactulose* 15 ML UDC PO SCH (17:59)
[2018-01-04] MEDS: Montelukast Sodium TAB* 10 MG PO SCH (21:31)
[2018-01-05] MEDS: LORazepam TAB(*) 1 MG PO SCH ×4 (01:31→20:59)
[2018-01-05] MEDS: Gabapentin CAP(*) 300 MG PO SCH ×4 (01:31→18:00)
[2018-01-05] MEDS: Carbidopa/Levodop 25/100 MG TAB(*) PO SCH ×7 (01:31→20:59)
[2018-01-05] MEDS: Omeprazole CAP* 20 MG PO SCH (06:02)
[2018-01-05] MEDS: Sertraline* 25 MG TAB PO SCH (06:02)
[2018-01-05] MEDS: Polyethylene Glycol 3350* 17 GM PACKET PO SCH (08:55)
[2018-01-05] MEDS: Docusate CAP* 100 MG PO SCH ×4 (08:55→21:00)
[2018-01-05] MEDS: Calcium/Vitamin D TAB 250/125* TAB PO SCH (09:03)
[2018-01-05] MEDS: Cholecalciferol TAB* 1000 UNITS PO SCH (09:03)
[2018-01-05] MEDS: Potassium Chlor TAB* 10 MEQ TAB.ER PO SCH (09:03)
[2018-01-05] MEDS: Folic Acid TAB* 1 MG PO SCH (09:04)
[2018-01-05] MEDS: Prenatal Vitamin TAB PO SCH (09:04)
[2018-01-05] MEDS: Enoxaparin(*) 40 MG/0.4 ML SYR SUBCUT SCH (09:04)
--- NOTE | 2018-01-05 11:03 | PN ---
Progress Note Date of Service: 01/05/18 Note: SENDY GILLETTE was visited. Nursing and therapy notes read and reviewed. No chest pain, shortness of breath or abdominal pain. She notes how her ability to transfer fluctuates depending on how stiff she feels. Current Medications: Active Medications Generic Name Dose Route Start Last Admin Trade Name Freq PRN Reason Stop Dose Admin Acetaminophen 650 mg 01/01/18 12:37 01/04/18 17:58 Tylenol Tab* PO 650 mg Q6H PRN Administration FEVER/PAIN Albuterol 2 puff 01/01/18 13:04 Ventolin Hfa Inhaler* INH Q6H PRN SOB/WHEEZING Calcium/Vitamin D 1 tab 01/02/18 09:00 01/05/18 09:03 Oscal D Tab 250/125* PO 1 tab DAILY ARNIE Administration Carbidopa/Levodopa 2.5 tab 01/01/18 15:00 01/05/18 09:03 Sinemet 25/100 Tab(*) PO 2.5 tab 0600,0900,1200,1500 ARNIE Administration Carbidopa/Levodopa 2.5 tab 01/01/18 18:00 01/05/18 01:31 Sinemet 25/100 Tab(*) PO 2.5 tab 0130,1800,2100 ARNIE Administration Cholecalciferol 2,000 units 01/02/18 09:00 01/05/18 09:03 Vitamin D Tab* PO 2,000 units DAILY ARNIE Administration Docusate Sodium 100 mg 01/01/18 14:00 01/05/18 09:08 Colace Cap* PO 100 mg TID ARNIE Administration Enoxaparin Sodium 40 mg 01/02/18 09:00 01/05/18 09:04 Lovenox(*) SUBCUT 40 mg Q24H ARNIE Administration Folic Acid 1 mg 01/02/18 09:00 01/05/18 09:04 Folvite Tab* PO 1 mg DAILY ARNIE Administration Gabapentin 600 mg 01/01/18 18:00 01/05/18 06:01 Neurontin Cap(*) PO 600 mg 0600,1800 ARNIE Administration Gabapentin 900 mg 01/02/18 01:30 01/05/18 01:31 Neurontin Cap(*) PO 900 mg 0130,1200 ARNIE Administration Lactulose 15 ml 01/01/18 18:00 01/04/18 17:59 Lactulose* PO 15 ml 1800 ARNIE Administration Lorazepam 1 mg 01/01/18 15:00 01/05/18 09:12 Ativan Tab(*) PO 1 mg 0130,0900,1500,2100 ARNIE Administration Magnesium Hydroxide 30 ml 01/01/18 12:37 Milk Of Magnesia Liq* PO Q6H PRN CONSTIPATION Montelukast Sodium 10 mg 01/01/18 21:00 01/04/18 21:31 Singulair Tab* PO 10 mg BEDTIME ARNIE Administration Multivitamins 1 tab 01/02/18 09:00 01/05/18 09:04 Vitamin Tab* PO 1 tab DAILY ARNIE Administration Omeprazole 20 mg 01/02/18 06:00 01/05/18 06:02 Prilosec Cap* PO 20 mg 0600 ARNIE Administration Oxycodone HCl 5 mg 01/01/18 17:58 Roxycodone Tab* PO Q4H PRN PAIN - MODERATE TO SEVERE Oxycodone HCl 10 mg 01/01/18 17:58 01/03/18 20:23 Roxycodone Tab* PO 10 mg Q4H PRN Administration PAIN - SEVERE Polyethylene Glycol/Electrolytes 17 gm 01/02/18 09:00 01/05/18 08:55 Miralax* PO Not Given DAILY ARNIE Polyvinyl Alcohol 1 drop 01/04/18 09:39 01/04/18 11:51 Polyvinyl Alcohol 1.4% Opth* BOTH EYES 1 drop Q2H PRN Administration DRY EYE Potassium Chloride 10 meq 01/01/18 16:00 01/05/18 09:03 Klor Con Er Tab* PO 10 meq DAILY ARNIE Administration Senna 2 tab 01/01/18 12:37 Senokot Tab* PO BEDTIME PRN CONSTIPATION Sertraline HCl 25 mg 01/02/18 06:00 01/05/18 06:02 Zoloft* PO 25 mg 0600 ARNIE Administration Vital Signs: Vital Signs Temp Pulse Resp BP Pulse Ox 98.2 F 81 20 128/76 96 01/05/18 06:00 01/05/18 06:00 01/05/18 09:12 01/05/18 06:00 01/05/18 06:00 Exam: GEN: no acute distress. Alert and appropriate. LUNGS: clear to auscultation bilaterally. CV: regular rate and rhythm ABD: + bowel sounds, soft, non-tender, non-distended. EXT: right leg in partial cast/splint with LÓPEZ. No left leg edema. Able to wiggle right toes with normal sensation. Assessment/Plan: 67yo woman with Parkinsons disease s/p right ankle release for contracture 1. Right ankle release: NWB RLE. PT/OT. f/u with Dr. Hopper or [facility] 2. Parkinsons Disease: Sinemet @ 0600, 0900, 1200, 1500, 1800, 2100 and 0130. Ativan. 3. DVT Prophylaxis: Lovenox 4. Analgesia: Oxycodone as needed/Tylenol 5. Asthma: Singulair/Albuterol 6. Dry eyes: ordered lubricant eye drops 7. Potassium: K was normal on routine labs. Her daughter can bring in her supplement if desired and we can see if it appears appropriate. 8. Advanced Directives: Full code 9. Estimated LOS: 01/24/18 01/05/18 11:02
[2018-01-05] MEDS: Lactulose* 15 ML UDC PO SCH (18:03)
[2018-01-05] MEDS: Montelukast Sodium TAB* 10 MG PO SCH (20:59)
[2018-01-06] MEDS: Acetaminophen TAB* 325 MG PO PRN (01:25)
[2018-01-06] MEDS: LORazepam TAB(*) 1 MG PO SCH ×12 (01:30→21:14)
[2018-01-06] MEDS: Carbidopa/Levodop 25/100 MG TAB(*) PO SCH ×8 (01:30→20:45)
[2018-01-06] MEDS: Gabapentin CAP(*) 300 MG PO SCH ×5 (01:30→18:04)
[2018-01-06] MEDS: Omeprazole CAP* 20 MG PO SCH (06:03)
[2018-01-06] MEDS: Sertraline* 25 MG TAB PO SCH (06:03)
[2018-01-06] MEDS: Enoxaparin(*) 40 MG/0.4 ML SYR SUBCUT SCH (08:53)
[2018-01-06] MEDS: Potassium Chlor TAB* 10 MEQ TAB.ER PO SCH (08:54)
[2018-01-06] MEDS: Prenatal Vitamin TAB PO SCH (08:54)
[2018-01-06] MEDS: Docusate CAP* 100 MG PO SCH ×3 (08:54→20:48)
[2018-01-06] MEDS: Calcium/Vitamin D TAB 250/125* TAB PO SCH (08:55)
[2018-01-06] MEDS: Folic Acid TAB* 1 MG PO SCH (08:55)
[2018-01-06] MEDS: Cholecalciferol TAB* 1000 UNITS PO SCH (08:55)
[2018-01-06] MEDS: Polyethylene Glycol 3350* 17 GM PACKET PO SCH ×2 (08:59→10:19)
[2018-01-06] MEDS: Artificial Tears* 15 ML BTL BOTH EYES PRN (14:56)
[2018-01-06] MEDS: Lactulose* 15 ML UDC PO SCH (17:29)
--- NOTE | 2018-01-06 19:48 | PN ---
Progress Note Date of Service: 01/06/18 Note: SENDY GILLETTE was visited. Therapy notes read and reviewed. She complains of more pain today but thinks that is because her medications were not timed properly Current Medications: Active Medications Generic Name Dose Route Start Last Admin Trade Name Freq PRN Reason Stop Dose Admin Acetaminophen 650 mg 01/01/18 12:37 01/06/18 01:25 Tylenol Tab* PO 650 mg Q6H PRN Administration FEVER/PAIN Albuterol 2 puff 01/01/18 13:04 Ventolin Hfa Inhaler* INH Q6H PRN SOB/WHEEZING Calcium/Vitamin D 1 tab 01/02/18 09:00 01/06/18 08:55 Oscal D Tab 250/125* PO 1 tab DAILY ARNIE Administration Carbidopa/Levodopa 2.5 tab 01/01/18 18:00 01/06/18 18:06 Sinemet 25/100 Tab(*) PO 2.5 tab 0130,1800,2100 ARNIE Administration Carbidopa/Levodopa 2.5 tab 01/06/18 12:00 01/06/18 14:52 Sinemet 25/100 Tab(*) PO 2.5 tab 0600,0900,1200,1500 ARNIE Administration Cholecalciferol 2,000 units 01/02/18 09:00 01/06/18 08:55 Vitamin D Tab* PO 2,000 units DAILY ARNIE Administration Docusate Sodium 100 mg 01/01/18 14:00 01/06/18 14:52 Colace Cap* PO 100 mg TID ARNIE Administration Enoxaparin Sodium 40 mg 01/02/18 09:00 01/06/18 08:53 Lovenox(*) SUBCUT 40 mg Q24H ARNIE Administration Folic Acid 1 mg 01/02/18 09:00 01/06/18 08:55 Folvite Tab* PO 1 mg DAILY ARNIE Administration Gabapentin 600 mg 01/01/18 18:00 01/06/18 18:04 Neurontin Cap(*) PO 600 mg 0600,1800 ARNIE Administration Gabapentin 900 mg 01/06/18 12:00 01/06/18 12:32 Neurontin Cap(*) PO Not Given 0130,1200 ARNIE Lactulose 15 ml 01/01/18 18:00 01/06/18 17:29 Lactulose* PO 15 ml 1800 ARNIE Administration Lorazepam 1 mg 01/01/18 15:00 01/06/18 15:00 Ativan Tab(*) PO 1 mg 0130,0900,1500,2100 ARNIE Administration Magnesium Hydroxide 30 ml 01/01/18 12:37 Milk Of Magnesia Liq* PO Q6H PRN CONSTIPATION Montelukast Sodium 10 mg 01/01/18 21:00 01/05/18 20:59 Singulair Tab* PO 10 mg BEDTIME ARNIE Administration Multivitamins 1 tab 01/02/18 09:00 01/06/18 08:54 Vitamin Tab* PO 1 tab DAILY ARNIE Administration Omeprazole 20 mg 01/02/18 06:00 01/06/18 06:03 Prilosec Cap* PO 20 mg 0600 ARNIE Administration Oxycodone HCl 5 mg 01/01/18 17:58 Roxycodone Tab* PO Q4H PRN PAIN - MODERATE TO SEVERE Oxycodone HCl 10 mg 01/01/18 17:58 01/03/18 20:23 Roxycodone Tab* PO 10 mg Q4H PRN Administration PAIN - SEVERE Polyethylene Glycol/Electrolytes 17 gm 01/02/18 09:00 01/06/18 10:19 Miralax* PO 17 gm DAILY ARNIE Administration Polyvinyl Alcohol 1 drop 01/04/18 09:39 01/06/18 14:56 Polyvinyl Alcohol 1.4% Opth* BOTH EYES 1 drop Q2H PRN Administration DRY EYE Potassium Chloride 10 meq 01/01/18 16:00 01/06/18 08:54 Klor Con Er Tab* PO 10 meq DAILY ARNIE Administration Senna 2 tab 01/01/18 12:37 Senokot Tab* PO BEDTIME PRN CONSTIPATION Sertraline HCl 25 mg 01/02/18 06:00 01/06/18 06:03 Zoloft* PO 25 mg 0600 ARNIE Administration Vital Signs: Vital Signs Temp Pulse Resp BP Pulse Ox 98.0 F 77 18 108/59 96 01/06/18 16:03 01/06/18 16:03 01/06/18 18:04 01/06/18 16:03 01/06/18 16:03 Exam: HEENT: EOMI LUNGS: Clear HEART: regular rhythm ABDOMEN: Soft, +BS EXTREMITIES: Right ankle in cast. NEUROLOGIC: Resting tremor in legs. Exam non focal Assessment/Plan: 1. Right ankle release: NWB RLE. PT/OT. f/u with Dr. Hopper or [place] 2. Parkinsons Disease: Sinemet @ 0600, 0900, 1200, 1500, 1800, 2100 and 0130. Ativan. 3. DVT Prophylaxis: Lovenox 4. Analgesia: Oxycodone as needed/Tylenol 5. Asthma: Singulair/Albuterol 6. Dry eyes: ordered lubricant eye drops 7. Potassium: K was normal on routine labs. Her daughter can bring in her supplement if desired and we can see if it appears appropriate. 8. Advanced Directives: Full code 9. Estimated LOS: 01/24/18 01/06/18 19:49
[2018-01-06] MEDS: Montelukast Sodium TAB* 10 MG PO SCH (20:46)
[2018-01-06] MEDS: Senna TAB PO PRN (20:48)
[2018-01-07] MEDS: Carbidopa/Levodop 25/100 MG TAB(*) PO SCH ×7 (01:27→21:03)
[2018-01-07] MEDS: Gabapentin CAP(*) 300 MG PO SCH ×4 (01:28→18:00)
[2018-01-07] MEDS: LORazepam TAB(*) 1 MG PO SCH ×4 (01:30→21:04)
[2018-01-07] MEDS: Acetaminophen TAB* 325 MG PO PRN (02:00)
[2018-01-07] MEDS: Omeprazole CAP* 20 MG PO SCH (06:17)
[2018-01-07] MEDS: Sertraline* 25 MG TAB PO SCH (06:18)
[2018-01-07] MEDS: Polyethylene Glycol 3350* 17 GM PACKET PO SCH (08:23)
[2018-01-07] MEDS: Docusate CAP* 100 MG PO SCH ×3 (08:24→21:04)
[2018-01-07] MEDS: Potassium Chlor TAB* 10 MEQ TAB.ER PO SCH (08:24)
[2018-01-07] MEDS: Calcium/Vitamin D TAB 250/125* TAB PO SCH (08:24)
[2018-01-07] MEDS: Cholecalciferol TAB* 1000 UNITS PO SCH (08:24)
[2018-01-07] MEDS: Folic Acid TAB* 1 MG PO SCH (08:24)
[2018-01-07] MEDS: Prenatal Vitamin TAB PO SCH (08:25)
[2018-01-07] MEDS: Enoxaparin(*) 40 MG/0.4 ML SYR SUBCUT SCH (08:25)
--- NOTE | 2018-01-07 12:37 | PMRUTEAM ---
PMRU: Team Meeting Current Status: Nursing: Current Status Skin Deviations [Buttocks] Other Skin Deviations [Right Foot] Other Skin Deviation Description [ nothing noted Buttocks] Skin Deviation Description [ cast intact Right Foot] Bladder Current Status voiding on bsc Bowel Current Status taking miralax and colace Nutrition Current Status appetite good Medication Current Status good understanding of medications Physical Therapy: Current Status Bed Mobility Assistance Supervision Transfer Moblility Assistance Max Assist Transfer/Bed Mobility Rolling Walker Recommended Devices Ambulation Assistance Contact Guard Assist Ambulation Assistive Devices Rolling Walker Number of Feet Patient 10 Ambulated Stairs Assistance Independent Number of Stairs Flight Manual Wheelchair Control/ Bilateral UE's Technique Wheelchair Propulsion Ability Moderate Assistance Wheelchair Distance (ft) 20 Objective Comments patient initially completes w/c mobility down carias with supervision/independence. at end of session patient is unable to complete mobility. Occupational Therapy: Current Status Upper Body Dressing Supervision,Min Assist Lower Body Dressing Total Assist,2 Person Assist Lower Body Dressing Progress min-modA x 2 Bathing Total Assist,2 Person Assist Bathing Progress modA x 2 Toileting Total Assist,2 Person Assist Toileting Progress modA x 2 Toilet Transfer Total Assist,2 Person Assist Toilet Transfer Progress min-modA x 2 Shower Transfer Total Assist,2 Person Assist Shower Transfer Progress modA x 2 with beasy board Eating Supervision Rec Therapy: Current Status Summary of Assessment and RT assesment complete and pt. is aware of RT Clinical Impression services. Pt. has benefited from utilizing leisure visits to have assistance with things in her room. Pt. has been anxious but is coping well . Treatment Goals Pt. will engage in leisure activities as tolerated . Treatment Plan Provide RT services and encourage involvement. Provide support as needed. Social Work: Current Status Discharge Plan return home with home care svs and family support Potential for Family Training pt's daughter is involved and supportive Anticipated Discharge Home Destination Discharge With home care svs and family support Nutrition: Current Status Monitoring nutrition assessment planned 01/08. Appears to be eating fairly well w/regular diet. Labs 01/03 unremarkable. Skin is intact w/low risk for breakdown. Initial goals as outlined below. Speech: Current Status Assessment Patient demonstrated Congitive-Communication status Within normal limits. Skilled speech therapy interventions are not indicated. Goals: Physical Therapy: Initial Goals Bed Mobility Assistance Independent Transfer Mobility Assistance Independent Transfer/Bed Mobility Rolling Walker Recommended Devices Ambulation Independent Ambulation Recommended Devices Rolling Walker Ambulation Distance 5 Wheelchair Propulsion Ability Independent Wheelchair Distance (ft) 150 Stairs Assistance Independent Stair Recommended Devices Two Rails Number of Stairs 13 Home Exercise Program Independent Assistance Physical Therapy: Updated Goals Transfer/Bed Mobility Romulo Lift Recommended Devices Occupational Therapy: Initial Goals Goals to be Completed in (Days 21-28 ) Upper Body Bathing Routine Supervision/Set Up Lower Body Bathing Routine Supervision/Set Up Upper Body Dressing Routine Independent Lower Body Dressing Routine Modified Independent with Toilet Hygeine and Clothing Modified Independent with Management Routine Toilet Transfer Routine Modified Independent with Step-In Shower Transfer Supervision/Set Up Routine Functional Transfers for ADL Modified Independent with Grooming Routine Independent Feeding Routine Independent Nursing: Goals Bladder Goal independent Bowel Goal bm this am Nutrition Goal 100% of all meals eaten Medication Goal daughter assists with pill box at home Nutrition: Goals Intervention Goals 1. adequate po intake to support stable wt and lean body mass without add'l wt gain 2. regulation of bowel pattern without c/o constipation (or diarrhea) Social Work: Goals Discharge Plan return home with home care svs and family support Potential for Family Training pt's daughter is involved and supportive Anticipated Discharge Home Destination Discharge With home care svs and family support Care Plan: Care Plan ADL's - Improve/Maintain Start: 01/01/18 16:18 Freq: DAILY@1200 Status: Active Target: Protocol: Activity Type Activity Date Activity User E-Sign Co-Sign Detail Recorded Client Recorded Date Recorded By Document 01/06/18 16:07 [id number] [email or web address] 01/06/18 16:07 [id number] 01/06/18 16:07 PMRU Outcome: ADL's/ADL Transfers Orders/Interventions Occupational Therapy Evaluation & Treatment Communication Tool in Patient Room Device Yes Address Deficits Secondary To: Right ankle/ foot sx Patient to receive OT 5x/wk for 60-120 Therex min/day Self Care Management Group Therapy UE/LE ADL's with Assist Yes: Tahira/ supervision for bathing ADL Transfers with Assist Yes: Tahira Toileting: Transfers,Clothing Management Yes: Tahira ,Hygeine w/Assist Light Kitchen/Laundry w/Assist No Outcome/Goals Met Pt participated fair in OT treatment session. Transfers and ability to maintain NWB RLE very inconsistent even within 60 minute treatment session this am which makes progress difficult at this time as pt 's abilities to maintain vary significantly. Coping/Psych-Improve/Maintain Start: 01/01/18 16:08 Freq: DAILY@1200 Status: Active Target: Protocol: Activity Type Activity Date Activity User E-Sign Co-Sign Detail Recorded Client Recorded Date Recorded By Document 01/07/18 10:52 [id number] [email or web address] 01/07/18 10:54 [id number] 01/07/18 10:52 PMRU Outcome: Coping/Psychosocial Coping Outcome/Goals Verbalization of Acceptance of Rehab Admit Verbalization of Sense of Control Over Health Status Utilization of Appropriate Problem Solving Techniques Willingness to Participate in Treatment Plan and Basic Needs Utilization of Available Support Systems Psychosocial Outcome/Goals Maintain/ Improve Emotional Health Demonstrates Knowledge of Healthy Coping Mechanisms Available Cooperate/ Participate in Plan Progression Toward Outcome/Goals - Not Progressing Coping Progression Toward Outcome/Goals - Not Progressing Psychosocial Outcome/Goals Met Comment routine ativan given. support given. patient having a much better morning. DVT Prophylaxis- Improve/Maintain Start: 01/01/18 16:08 Freq: DAILY@1200 Status: Active Target: Protocol: Activity Type Activity Date Activity User E-Sign Co-Sign Detail Recorded Client Recorded Date Recorded By Document 01/07/18 10:52 [id number] [email or web address] 01/07/18 10:54 [id number] 01/07/18 10:52 PMRU Outcome: DVT Prophylaxis Outcome/Goals Remains Free of DVT Complies with DVT Prophylaxis /Treatment Demonstrates Knowledge of DVT Prevention/ Treatment Other Outcome/Goals pt declines DEMETRICE /felicita wrap Progression Toward Outcome/Goals Not Progressing Discharge Planning - Improve/Maintain Start: 01/01/18 16:08 Freq: DAILY@1200 Status: Active Target: Protocol: Activity Type Activity Date Activity User E-Sign Co-Sign Detail Recorded Client Recorded Date Recorded By Document 01/07/18 04:03 [id number] [email or web address] 01/07/18 04:04 [id number] 01/07/18 04:03 PMRU Outcome: Discharge Planning Update Patient Family No Outcome/Goals Demonstrates Understanding of Discharge Plan Progression Toward Outcome/Goals Progressing Education-Improve/Maintain Start: 01/01/18 16:08 Freq: DAILY@1200 Status: Active Target: Protocol: Activity Type Activity Date Activity User E-Sign Co-Sign Detail Recorded Client Recorded Date Recorded By Document 01/07/18 10:52 [id number] [email or web address] 01/07/18 10:54 [id number] 01/07/18 10:52 PMRU Outcome: Education Outcome/Goals Encourage Questions Progression Toward Outcome/Goals Progressing /GI-Improve/Maintain Start: 01/01/18 16:08 Freq: DAILY@1200 Status: Active Target: Protocol: Activity Type Activity Date Activity User E-Sign Co-Sign Detail Recorded Client Recorded Date Recorded By Document 01/07/18 10:52 [id number] [email or web address] 01/07/18 10:54 [id number] 01/07/18 10:52 PMRU Outcome: Genitourinary/ Gastrointestinal Genitourinary- Outcome/Goals Maintain/ Achieve Urinary Continence Maintain/ Achieve Adequate Urinary Output Remain Free of Hospital- Acquired UTI Gastrointestinal-Outcome/Goals Maintain/ Achieve Bowel Regularity in Accordance with Pt's Baseline Remain Free of Emesis Prevent Constipation Laxatives as Ordered Progression Toward Outcome/Goals - Progressing Progression Toward Outcome/Goals - GI Progressing Outcome/Goals Met Comment colace and miralax given Medication Administration Start: 01/01/18 16:08 Freq: DAILY@1200 Status: Active Target: Protocol: Activity Type Activity Date Activity User E-Sign Co-Sign Detail Recorded Client Recorded Date Recorded By Document 01/07/18 10:52 [id number] [email or web address] 01/07/18 10:54 [id number] 01/07/18 10:52 PMRU Outcome: Medication Administration Assess Patient Knowledge/Teach Med Yes Education for all Meds Outcome/Goals Family/ Caregiver Administer Medications at Home Demonstrates Understanding Other Outcome/Goals daughter assists with pill box at home Progression Towards Outcome/Goals Progressing Is Patient Going Home on Lovenox? No Mobility- Improve/Maintain Start: 01/01/18 18:55 Freq: DAILY@1200 Status: Active Target: Protocol: Activity Type Activity Date Activity User E-Sign Co-Sign Detail Recorded Client Recorded Date Recorded By Document 01/01/18 18:55 [id number] [email or web address] 01/01/18 18:57 [id number] 01/01/18 18:55 PMRU Outcome: Mobility Physical Therapy Evaluation and Yes Treatment Activity OOB with Assistance Yes NWB Yes: RLE Device Yes Assistance Yes Patient to be seen 5x/wk for 60-120 min/ Therex day for: Mobility Training Gait Training W/C Mobility Balance Other Outcome/Goals Maintain/ Achieve Baseline Mobility Status Improve Mobility Status Demonstrates Proper Use of Assistive Devices Free from Complications of Immobility Bed Mobility Yes: independent Transfers Yes: independent with rolling walker. W/C Mobility x ft Yes: independent BUE to 150' Up/Down Stairs Yes: independent TBD . Neurological- Improve/Maintain Start: 01/01/18 16:08 Freq: DAILY@1200 Status: Active Target: Protocol: Activity Type Activity Date Activity User E-Sign Co-Sign Detail Recorded Client Recorded Date Recorded By Document 01/07/18 10:52 [id number] [email or web address] 01/07/18 10:54 [id number] 01/07/18 10:52 PMRU Outcome: Neurological Weakness/Aphasia Weakness Weakness/Aphasia Comment generalized weakness Outcome/Goals Maintain/ Achieve Baseline Neurological Status Improve Neurological Status Prevent Avoidable Neurological Decline Maintain/ Improve Strength/ROM Progression Toward Outcome/Goals Progressing Outcome/Goals Met Comment transfers better this am Pain/Comfort- Improve/Maintain Start: 01/01/18 16:08 Freq: DAILY@1200 Status: Active Target: Protocol: Activity Type Activity Date Activity User E-Sign Co-Sign Detail Recorded Client Recorded Date Recorded By Document 01/07/18 10:52 [id number] 01/07/18 10:54 [id number] 01/07/18 10:52 PMRU Outcome: Pain/Comfort Outcome/Goals Demonstrates Knowledge and Use of Available Comfort Measures Achieves Acceptable Comfort/Pain Level as Determined by Patient/Condit Maintain Comfort Level Allowing Patient to Fully Participate in Rehab Progression Toward Outcome/Goals Progressing Safety- Improve/Maintain Start: 01/01/18 16:08 Freq: DAILY@1200 Status: Active Target: Protocol: Activity Type Activity Date Activity User E-Sign Co-Sign Detail Recorded Client Recorded Date Recorded By Document 01/07/18 10:52 [id number] 01/07/18 10:54 [id number] 01/07/18 10:52 PMRU Outcome: Safety Outcome/Goals Remain Free of Injury or Harm Cooperates with Safety Measures for Least Restrictive Environment Prevent Falls/ Injury Progression Toward Outcome/Goals Progressing Outcome/Goals Met Comment PA in place Skin- Improve/Maintain Start: 01/01/18 16:08 Freq: DAILY@1200 Status: Active Target: Protocol: Activity Type Activity Date Activity User E-Sign Co-Sign Detail Recorded Client Recorded Date Recorded By Document 01/07/18 10:52 [id number] [email or web address] 01/07/18 10:54 [id number] 01/07/18 10:52 PMRU Outcome: Skin Skin Risk Level Medium Skin Orders Heels Off Bed Outcome/Goals Free from Decubitus Progression Toward Outcome/Goals Progressing Medicine Note: Length of Stay: 2 1/2 weeks Anticipated Discharge Destination: Home Tentative Discharge Date: January 24, 2018 Discharged to: Home
[2018-01-07] MEDS: Lactulose* 15 ML UDC PO SCH (18:01)
--- NOTE | 2018-01-07 18:25 | PN ---
Progress Note Date of Service: 01/07/18 Note: SENDY GILLETTE was visited. Therapy notes read and reviewed. She was discussed in interdisciplinary team rounds. She fluctuates widely in her capabilities. Sometimes able to NWB, sometimes not. Current Medications: Active Medications Generic Name Dose Route Start Last Admin Trade Name Freq PRN Reason Stop Dose Admin Acetaminophen 650 mg 01/01/18 12:37 01/07/18 02:00 Tylenol Tab* PO 650 mg Q6H PRN Administration FEVER/PAIN Albuterol 2 puff 01/01/18 13:04 Ventolin Hfa Inhaler* INH Q6H PRN SOB/WHEEZING Calcium/Vitamin D 1 tab 01/02/18 09:00 01/07/18 08:24 Oscal D Tab 250/125* PO 1 tab DAILY ARNIE Administration Carbidopa/Levodopa 2.5 tab 01/01/18 18:00 01/07/18 17:59 Sinemet 25/100 Tab(*) PO 2.5 tab 0130,1800,2100 ARNIE Administration Carbidopa/Levodopa 2.5 tab 01/06/18 12:00 01/07/18 14:31 Sinemet 25/100 Tab(*) PO 2.5 tab 0600,0900,1200,1500 ARNIE Administration Cholecalciferol 2,000 units 01/02/18 09:00 01/07/18 08:24 Vitamin D Tab* PO 2,000 units DAILY ARNIE Administration Docusate Sodium 100 mg 01/01/18 14:00 01/07/18 14:31 Colace Cap* PO 100 mg TID ARNIE Administration Enoxaparin Sodium 40 mg 01/02/18 09:00 01/07/18 08:25 Lovenox(*) SUBCUT 40 mg Q24H ARNIE Administration Folic Acid 1 mg 01/02/18 09:00 01/07/18 08:24 Folvite Tab* PO 1 mg DAILY ARNIE Administration Gabapentin 600 mg 01/01/18 18:00 01/07/18 18:00 Neurontin Cap(*) PO 600 mg 0600,1800 ARNIE Administration Gabapentin 900 mg 01/06/18 12:00 01/07/18 12:36 Neurontin Cap(*) PO 900 mg 0130,1200 ARNIE Administration Lactulose 15 ml 01/01/18 18:00 01/07/18 18:01 Lactulose* PO 15 ml 1800 ARNIE Administration Lorazepam 1 mg 01/01/18 15:00 01/07/18 14:32 Ativan Tab(*) PO 1 mg 0130,0900,1500,2100 ARNIE Administration Magnesium Hydroxide 30 ml 01/01/18 12:37 Milk Of Magnesia Liq* PO Q6H PRN CONSTIPATION Montelukast Sodium 10 mg 01/01/18 21:00 01/06/18 20:46 Singulair Tab* PO 10 mg BEDTIME ARNIE Administration Multivitamins 1 tab 01/02/18 09:00 01/07/18 08:25 Vitamin Tab* PO 1 tab DAILY ARNIE Administration Omeprazole 20 mg 01/02/18 06:00 01/07/18 06:17 Prilosec Cap* PO 20 mg 0600 ARNIE Administration Oxycodone HCl 5 mg 01/01/18 17:58 Roxycodone Tab* PO Q4H PRN PAIN - MODERATE TO SEVERE Oxycodone HCl 10 mg 01/01/18 17:58 01/03/18 20:23 Roxycodone Tab* PO 10 mg Q4H PRN Administration PAIN - SEVERE Polyethylene Glycol/Electrolytes 17 gm 01/02/18 09:00 01/07/18 08:23 Miralax* PO 17 gm DAILY ARNIE Administration Polyvinyl Alcohol 1 drop 01/04/18 09:39 01/06/18 14:56 Polyvinyl Alcohol 1.4% Opth* BOTH EYES 1 drop Q2H PRN Administration DRY EYE Potassium Chloride 10 meq 01/01/18 16:00 01/07/18 08:24 Klor Con Er Tab* PO 10 meq DAILY ARNIE Administration Senna 2 tab 01/01/18 12:37 01/06/18 20:48 Senokot Tab* PO 2 tab BEDTIME PRN Administration CONSTIPATION Sertraline HCl 25 mg 01/02/18 06:00 01/07/18 06:18 Zoloft* PO 25 mg 0600 ARNIE Administration Vital Signs: Vital Signs Temp Pulse Resp BP Pulse Ox 98.1 F 66 18 102/49 96 01/07/18 15:43 01/07/18 15:43 01/07/18 18:00 01/07/18 15:43 01/07/18 15:43 Exam: HEENT: EOMI LUNGS: Clear HEART: regular rhythm ABDOMEN: Soft, +BS EXTREMITIES: Right ankle in cast. NEUROLOGIC: Resting tremor in legs. Exam non focal Assessment/Plan: 1. Right ankle release: NWB RLE. PT/OT. f/u with Dr. Hopper or [place] 2. Parkinsons Disease: Sinemet @ 0600, 0900, 1200, 1500, 1800, 2100 and 0130. Ativan. 3. DVT Prophylaxis: Lovenox 4. Analgesia: Oxycodone as needed/Tylenol 5. Asthma: Singulair/Albuterol 6. Dry eyes: ordered lubricant eye drops 7. Potassium: K was normal on routine labs. 8. Advanced Directives: Full code 9. Estimated LOS: 01/24/18 01/07/18 18:25
[2018-01-07] MEDS: Montelukast Sodium TAB* 10 MG PO SCH (21:04)
[2018-01-07] MEDS: Senna TAB PO PRN (21:04)
[2018-01-08] MEDS: Carbidopa/Levodop 25/100 MG TAB(*) PO SCH ×7 (01:18→20:58)
[2018-01-08] MEDS: Gabapentin CAP(*) 300 MG PO SCH ×4 (01:20→18:02)
[2018-01-08] MEDS: LORazepam TAB(*) 1 MG PO SCH ×4 (01:22→20:59)
[2018-01-08] MEDS: Omeprazole CAP* 20 MG PO SCH (06:11)
[2018-01-08] MEDS: Sertraline* 25 MG TAB PO SCH (06:12)
[2018-01-08] MEDS: Potassium Chlor TAB* 10 MEQ TAB.ER PO SCH (08:14)
[2018-01-08] MEDS: Docusate CAP* 100 MG PO SCH ×3 (08:14→20:59)
[2018-01-08] MEDS: Calcium/Vitamin D TAB 250/125* TAB PO SCH (08:14)
[2018-01-08] MEDS: Polyethylene Glycol 3350* 17 GM PACKET PO SCH (08:14)
[2018-01-08] MEDS: Prenatal Vitamin TAB PO SCH (08:14)
[2018-01-08] MEDS: Cholecalciferol TAB* 1000 UNITS PO SCH (08:14)
[2018-01-08] MEDS: Folic Acid TAB* 1 MG PO SCH (08:14)
[2018-01-08] MEDS: Enoxaparin(*) 40 MG/0.4 ML SYR SUBCUT SCH (08:16)
[2018-01-08] MEDS: Lactulose* 15 ML UDC PO SCH (18:04)
[2018-01-08] MEDS: Acetaminophen TAB* 325 MG PO PRN (19:24)
--- NOTE | 2018-01-08 20:03 | PN ---
Progress Note Date of Service: 01/08/18 Note: SENDY GILLETTE was visited. Therapy notes read and reviewed. She has done well but continues to fluctuate, sometimes doing great and sometimes poorly. Current Medications: Active Medications Generic Name Dose Route Start Last Admin Trade Name Freq PRN Reason Stop Dose Admin Acetaminophen 650 mg 01/01/18 12:37 01/08/18 19:24 Tylenol Tab* PO 650 mg Q6H PRN Administration FEVER/PAIN Albuterol 2 puff 01/01/18 13:04 Ventolin Hfa Inhaler* INH Q6H PRN SOB/WHEEZING Calcium/Vitamin D 1 tab 01/02/18 09:00 01/08/18 08:14 Oscal D Tab 250/125* PO 1 tab DAILY ARNIE Administration Carbidopa/Levodopa 2.5 tab 01/01/18 18:00 01/08/18 18:03 Sinemet 25/100 Tab(*) PO 2.5 tab 0130,1800,2100 ARNIE Administration Carbidopa/Levodopa 2.5 tab 01/06/18 12:00 01/08/18 15:14 Sinemet 25/100 Tab(*) PO 2.5 tab 0600,0900,1200,1500 ARNIE Administration Cholecalciferol 2,000 units 01/02/18 09:00 01/08/18 08:14 Vitamin D Tab* PO 2,000 units DAILY ARNIE Administration Docusate Sodium 100 mg 01/01/18 14:00 01/08/18 15:14 Colace Cap* PO 100 mg TID ARNIE Administration Enoxaparin Sodium 40 mg 01/02/18 09:00 01/08/18 08:16 Lovenox(*) SUBCUT 40 mg Q24H ARNIE Administration Folic Acid 1 mg 01/02/18 09:00 01/08/18 08:14 Folvite Tab* PO 1 mg DAILY ARNIE Administration Gabapentin 600 mg 01/01/18 18:00 01/08/18 18:02 Neurontin Cap(*) PO 600 mg 0600,1800 ARNIE Administration Gabapentin 900 mg 01/06/18 12:00 01/08/18 12:20 Neurontin Cap(*) PO 900 mg 0130,1200 ARNIE Administration Lactulose 15 ml 01/01/18 18:00 01/08/18 18:04 Lactulose* PO 15 ml 1800 ARNIE Administration Lorazepam 1 mg 01/01/18 15:00 01/08/18 15:14 Ativan Tab(*) PO 1 mg 0130,0900,1500,2100 ARNIE Administration Magnesium Hydroxide 30 ml 01/01/18 12:37 Milk Of Magnesia Liq* PO Q6H PRN CONSTIPATION Montelukast Sodium 10 mg 01/01/18 21:00 01/07/18 21:04 Singulair Tab* PO 10 mg BEDTIME ARNIE Administration Multivitamins 1 tab 01/02/18 09:00 01/08/18 08:14 Vitamin Tab* PO 1 tab DAILY ARNIE Administration Omeprazole 20 mg 01/02/18 06:00 01/08/18 06:11 Prilosec Cap* PO 20 mg 0600 ARNIE Administration Oxycodone HCl 5 mg 01/01/18 17:58 Roxycodone Tab* PO Q4H PRN PAIN - MODERATE TO SEVERE Oxycodone HCl 10 mg 01/01/18 17:58 01/03/18 20:23 Roxycodone Tab* PO 10 mg Q4H PRN Administration PAIN - SEVERE Polyethylene Glycol/Electrolytes 17 gm 01/02/18 09:00 01/08/18 08:14 Miralax* PO 17 gm DAILY ARNIE Administration Polyvinyl Alcohol 1 drop 01/04/18 09:39 01/06/18 14:56 Polyvinyl Alcohol 1.4% Opth* BOTH EYES 1 drop Q2H PRN Administration DRY EYE Potassium Chloride 10 meq 01/01/18 16:00 01/08/18 08:14 Klor Con Er Tab* PO 10 meq DAILY ARNIE Administration Senna 2 tab 01/01/18 12:37 01/07/18 21:04 Senokot Tab* PO 2 tab BEDTIME PRN Administration CONSTIPATION Sertraline HCl 25 mg 01/02/18 06:00 01/08/18 06:12 Zoloft* PO 25 mg 0600 ARNIE Administration Vital Signs: Vital Signs Temp Pulse Resp BP Pulse Ox 98.3 F 88 18 144/74 96 01/08/18 15:43 01/08/18 15:43 01/08/18 18:54 01/08/18 15:43 01/08/18 15:43 Exam: HEENT: EOMI LUNGS: Clear HEART: regular rhythm ABDOMEN: Soft, +BS EXTREMITIES: Right ankle in cast. NEUROLOGIC: Resting tremor in legs. Exam non focal Assessment/Plan: 1. Right ankle release: NWB RLE. PT/OT. f/u with Dr. Hopper or [place] 2. Parkinsons Disease: Sinemet @ 0600, 0900, 1200, 1500, 1800, 2100 and 0130. Ativan. 3. DVT Prophylaxis: Lovenox 4. Analgesia: Oxycodone as needed/Tylenol 5. Asthma: Singulair/Albuterol 6. Dry eyes: ordered lubricant eye drops 7. Potassium: K was normal on routine labs. 8. Advanced Directives: Full code 9. Estimated LOS: 01/24/18 01/08/18 20:03
[2018-01-08] MEDS: Senna TAB PO PRN (20:59)
[2018-01-08] MEDS: Montelukast Sodium TAB* 10 MG PO SCH (20:59)
[2018-01-09] MEDS: Carbidopa/Levodop 25/100 MG TAB(*) PO SCH ×7 (01:28→20:59)
[2018-01-09] MEDS: Gabapentin CAP(*) 300 MG PO SCH ×4 (01:29→18:05)
[2018-01-09] MEDS: LORazepam TAB(*) 1 MG PO SCH ×4 (01:31→21:00)
[2018-01-09] MEDS: Omeprazole CAP* 20 MG PO SCH (06:19)
[2018-01-09] MEDS: Sertraline* 25 MG TAB PO SCH (06:19)
[2018-01-09] MEDS: Calcium/Vitamin D TAB 250/125* TAB PO SCH (08:29)
[2018-01-09] MEDS: Docusate CAP* 100 MG PO SCH ×3 (08:29→21:01)
[2018-01-09] MEDS: Enoxaparin(*) 40 MG/0.4 ML SYR SUBCUT SCH (08:29)
[2018-01-09] MEDS: Cholecalciferol TAB* 1000 UNITS PO SCH (08:29)
[2018-01-09] MEDS: Folic Acid TAB* 1 MG PO SCH (08:29)
[2018-01-09] MEDS: Prenatal Vitamin TAB PO SCH (08:30)
[2018-01-09] MEDS: Potassium Chlor TAB* 10 MEQ TAB.ER PO SCH (08:30)
[2018-01-09] MEDS: Polyethylene Glycol 3350* 17 GM PACKET PO SCH (08:30)
--- NOTE | 2018-01-09 16:38 | PN ---
Progress Note Date of Service: 01/09/18 Note: SENDY GILLETTE was visited. Therapy notes read and reviewed. Her functional performance continues to fluctuate and she now realizes she may not be able to return home until able to bear weight on right ankle. Current Medications: Active Medications Generic Name Dose Route Start Last Admin Trade Name Freq PRN Reason Stop Dose Admin Acetaminophen 650 mg 01/01/18 12:37 01/08/18 19:24 Tylenol Tab* PO 650 mg Q6H PRN Administration FEVER/PAIN Albuterol 2 puff 01/01/18 13:04 Ventolin Hfa Inhaler* INH Q6H PRN SOB/WHEEZING Calcium/Vitamin D 1 tab 01/02/18 09:00 01/09/18 08:29 Oscal D Tab 250/125* PO 1 tab DAILY ARNIE Administration Carbidopa/Levodopa 2.5 tab 01/01/18 18:00 01/09/18 01:28 Sinemet 25/100 Tab(*) PO 2.5 tab 0130,1800,2100 ARNIE Administration Carbidopa/Levodopa 2.5 tab 01/06/18 12:00 01/09/18 15:05 Sinemet 25/100 Tab(*) PO 2.5 tab 0600,0900,1200,1500 ARNIE Administration Cholecalciferol 2,000 units 01/02/18 09:00 01/09/18 08:29 Vitamin D Tab* PO 2,000 units DAILY ARNIE Administration Docusate Sodium 100 mg 01/01/18 14:00 01/09/18 13:21 Colace Cap* PO 100 mg TID ARNIE Administration Enoxaparin Sodium 40 mg 01/02/18 09:00 01/09/18 08:29 Lovenox(*) SUBCUT 40 mg Q24H ARNIE Administration Folic Acid 1 mg 01/02/18 09:00 01/09/18 08:29 Folvite Tab* PO 1 mg DAILY ARNIE Administration Gabapentin 600 mg 01/01/18 18:00 01/09/18 06:18 Neurontin Cap(*) PO 600 mg 0600,1800 ARNIE Administration Gabapentin 900 mg 01/06/18 12:00 01/09/18 12:11 Neurontin Cap(*) PO 900 mg 0130,1200 ARNIE Administration Lactulose 15 ml 01/01/18 18:00 01/08/18 18:04 Lactulose* PO 15 ml 1800 ARNIE Administration Lorazepam 1 mg 01/01/18 15:00 01/09/18 15:06 Ativan Tab(*) PO 1 mg 0130,0900,1500,2100 ARNIE Administration Magnesium Hydroxide 30 ml 01/01/18 12:37 Milk Of Magnesia Liq* PO Q6H PRN CONSTIPATION Montelukast Sodium 10 mg 01/01/18 21:00 01/08/18 20:59 Singulair Tab* PO 10 mg BEDTIME ARNIE Administration Multivitamins 1 tab 01/02/18 09:00 01/09/18 08:30 Vitamin Tab* PO 1 tab DAILY ARNIE Administration Omeprazole 20 mg 01/02/18 06:00 01/09/18 06:19 Prilosec Cap* PO 20 mg 0600 ARNIE Administration Oxycodone HCl 5 mg 01/01/18 17:58 Roxycodone Tab* PO Q4H PRN PAIN - MODERATE TO SEVERE Oxycodone HCl 10 mg 01/01/18 17:58 01/03/18 20:23 Roxycodone Tab* PO 10 mg Q4H PRN Administration PAIN - SEVERE Polyethylene Glycol/Electrolytes 17 gm 01/02/18 09:00 01/09/18 08:30 Miralax* PO 17 gm DAILY ARNIE Administration Polyvinyl Alcohol 1 drop 01/04/18 09:39 01/06/18 14:56 Polyvinyl Alcohol 1.4% Opth* BOTH EYES 1 drop Q2H PRN Administration DRY EYE Potassium Chloride 10 meq 01/01/18 16:00 01/09/18 08:30 Klor Con Er Tab* PO 10 meq DAILY ARNIE Administration Senna 2 tab 01/01/18 12:37 01/08/18 20:59 Senokot Tab* PO 2 tab BEDTIME PRN Administration CONSTIPATION Sertraline HCl 25 mg 01/02/18 06:00 01/09/18 06:19 Zoloft* PO 25 mg 0600 ARNIE Administration Vital Signs: Vital Signs Temp Pulse Resp BP Pulse Ox 97.6 F 81 16 151/76 97 01/09/18 06:17 01/09/18 06:17 01/09/18 15:08 01/09/18 06:17 01/09/18 06:17 Exam: HEENT: EOMI LUNGS: Clear HEART: regular rhythm ABDOMEN: Soft, +BS EXTREMITIES: Right ankle in cast. NEUROLOGIC: Resting tremor in legs. Exam non focal Assessment/Plan: 1. Right ankle release: NWB RLE. PT/OT. f/u with Dr. Hopper or [place] 2. Parkinsons Disease: Sinemet @ 0600, 0900, 1200, 1500, 1800, 2100 and 0130. Ativan. 3. DVT Prophylaxis: Lovenox 4. Analgesia: Oxycodone as needed/Tylenol 5. Asthma: Singulair/Albuterol 6. Dry eyes: ordered lubricant eye drops 7. Potassium: K was normal on routine labs. 8. Advanced Directives: Full code 9. Estimated LOS: 01/24/18 01/09/18 16:39
[2018-01-09] MEDS: Lactulose* 15 ML UDC PO SCH (18:05)
[2018-01-09] MEDS: Montelukast Sodium TAB* 10 MG PO SCH (21:00)
[2018-01-09] MEDS: Senna TAB PO PRN (21:04)
[2018-01-09] MEDS: Acetaminophen TAB* 325 MG PO PRN (21:05)
[2018-01-10] MEDS: LORazepam TAB(*) 1 MG PO SCH ×4 (01:31→20:56)
[2018-01-10] MEDS: Carbidopa/Levodop 25/100 MG TAB(*) PO SCH ×7 (01:31→20:56)
[2018-01-10] MEDS: Gabapentin CAP(*) 300 MG PO SCH ×4 (01:31→18:02)
[2018-01-10] MEDS: Sertraline* 25 MG TAB PO SCH (06:02)
[2018-01-10] MEDS: Omeprazole CAP* 20 MG PO SCH (06:02)
[2018-01-10 06:44] LABS: ABS Basophils 0 10^3/ul (0-0.2); ABS Eosinophils 0.2 10^3/ul (0-0.6); ABS Lymphocytes 0.9 10^3/ul (1.0-4.8); ABS Monocytes 0.3 10^3/ul (0-0.8); ABS Neutrophils 3.1 10^3/ul (1.5-7.7); ABS Nucleated RBC 0 10^3/ul; Eosinophil % 4.3 % (0-6); Hematocrit 36 % (35-47); Hemoglobin 12.7 g/dl (12.0-16.0); Lymphocyte % 20.4 % (25-47); Mean Corpuscular HGB Conc 35 g/dl (31-36); Mean Corpuscular Hemoglobin 32 pg (27-31); Mean Corpuscular Volume 91 fL (80-97); Mean Platelet Volume 7.1 um3 (7.4-10.4); Nucleated Red Blood Cells % 0; Platelet Count 253 10^3/ul (150-450); Red Blood Count 3.97 10^6/ul (4.00-5.40); Red Cell Distribution Width 13 % (10.5-15); White Blood Count 4.5 10^3/ul (3.5-10.8)
[2018-01-10 06:55] LABS: EGFR Non-African American 77.1 (>60)
[2018-01-10] MEDS: Polyethylene Glycol 3350* 17 GM PACKET PO SCH (08:19)
[2018-01-10] MEDS: Potassium Chlor TAB* 10 MEQ TAB.ER PO SCH (09:09)
[2018-01-10] MEDS: Folic Acid TAB* 1 MG PO SCH (09:09)
[2018-01-10] MEDS: Cholecalciferol TAB* 1000 UNITS PO SCH (09:09)
[2018-01-10] MEDS: Prenatal Vitamin TAB PO SCH (09:09)
[2018-01-10] MEDS: Docusate CAP* 100 MG PO SCH ×3 (09:10→20:56)
[2018-01-10] MEDS: Enoxaparin(*) 40 MG/0.4 ML SYR SUBCUT SCH (09:10)
[2018-01-10] MEDS: Calcium/Vitamin D TAB 250/125* TAB PO SCH (09:10)
--- NOTE | 2018-01-10 17:09 | PN ---
Progress Note Date of Service: 01/10/18 Note: SENDY GILLETTE was visited. Therapy notes read and reviewed. She has continued to fluctuate and it appears unlikely she will return home while she is NWB. Will look into alternatives Current Medications: Active Medications Generic Name Dose Route Start Last Admin Trade Name Freq PRN Reason Stop Dose Admin Acetaminophen 650 mg 01/01/18 12:37 01/09/18 21:05 Tylenol Tab* PO 650 mg Q6H PRN Administration FEVER/PAIN Albuterol 2 puff 01/01/18 13:04 Ventolin Hfa Inhaler* INH Q6H PRN SOB/WHEEZING Calcium/Vitamin D 1 tab 01/02/18 09:00 01/10/18 09:10 Oscal D Tab 250/125* PO 1 tab DAILY ARNIE Administration Carbidopa/Levodopa 2.5 tab 01/01/18 18:00 01/10/18 01:31 Sinemet 25/100 Tab(*) PO 2.5 tab 0130,1800,2100 ARNIE Administration Carbidopa/Levodopa 2.5 tab 01/06/18 12:00 01/10/18 14:59 Sinemet 25/100 Tab(*) PO 2.5 tab 0600,0900,1200,1500 ARNIE Administration Cholecalciferol 2,000 units 01/02/18 09:00 01/10/18 09:09 Vitamin D Tab* PO 2,000 units DAILY ARNIE Administration Docusate Sodium 100 mg 01/01/18 14:00 01/10/18 14:59 Colace Cap* PO 100 mg TID ARNIE Administration Enoxaparin Sodium 40 mg 01/02/18 09:00 01/10/18 09:10 Lovenox(*) SUBCUT 40 mg Q24H ARNIE Administration Folic Acid 1 mg 01/02/18 09:00 01/10/18 09:09 Folvite Tab* PO 1 mg DAILY ARNIE Administration Gabapentin 600 mg 01/01/18 18:00 01/10/18 06:02 Neurontin Cap(*) PO 600 mg 0600,1800 ARNIE Administration Gabapentin 900 mg 01/06/18 12:00 01/10/18 12:41 Neurontin Cap(*) PO 900 mg 0130,1200 ARNIE Administration Lactulose 15 ml 01/01/18 18:00 01/09/18 18:05 Lactulose* PO 15 ml 1800 ARNIE Administration Lorazepam 1 mg 01/01/18 15:00 01/10/18 14:59 Ativan Tab(*) PO 1 mg 0130,0900,1500,2100 ARNIE Administration Magnesium Hydroxide 30 ml 01/01/18 12:37 Milk Of Magnesia Liq* PO Q6H PRN CONSTIPATION Montelukast Sodium 10 mg 01/01/18 21:00 01/09/18 21:00 Singulair Tab* PO 10 mg BEDTIME ARNIE Administration Multivitamins 1 tab 01/02/18 09:00 01/10/18 09:09 Vitamin Tab* PO 1 tab DAILY ARNIE Administration Omeprazole 20 mg 01/02/18 06:00 01/10/18 06:02 Prilosec Cap* PO 20 mg 0600 ARNIE Administration Oxycodone HCl 5 mg 01/01/18 17:58 Roxycodone Tab* PO Q4H PRN PAIN - MODERATE TO SEVERE Oxycodone HCl 10 mg 01/01/18 17:58 01/03/18 20:23 Roxycodone Tab* PO 10 mg Q4H PRN Administration PAIN - SEVERE Polyethylene Glycol/Electrolytes 17 gm 01/02/18 09:00 01/10/18 08:19 Miralax* PO 17 gm DAILY ARNIE Administration Polyvinyl Alcohol 1 drop 01/04/18 09:39 01/06/18 14:56 Polyvinyl Alcohol 1.4% Opth* BOTH EYES 1 drop Q2H PRN Administration DRY EYE Potassium Chloride 10 meq 01/01/18 16:00 01/10/18 09:09 Klor Con Er Tab* PO 10 meq DAILY ARNIE Administration Senna 2 tab 01/01/18 12:37 01/09/18 21:04 Senokot Tab* PO 2 tab BEDTIME PRN Administration CONSTIPATION Sertraline HCl 25 mg 01/02/18 06:00 01/10/18 06:02 Zoloft* PO 25 mg 0600 ARNIE Administration Vital Signs: Vital Signs Temp Pulse Resp BP Pulse Ox 97.8 F 86 18 102/42 97 01/10/18 15:44 01/10/18 15:44 01/10/18 15:44 01/10/18 15:44 01/10/18 15:44 Lab Results: Laboratory Results - last 24 hr 01/10/18 01/10/18 05:54 05:54 WBC 4.5 RBC 3.97 L Hgb 12.7 Hct 36 MCV 91 MCH 32 H MCHC 35 RDW 13 Plt Count 253 MPV 7.1 L Neut % (Auto) 67.8 Lymph % (Auto) 20.4 L [place] % (Auto) 6.8 Eos % (Auto) 4.3 Baso % (Auto) 0.7 Absolute Neuts (auto) 3.1 Absolute Lymphs (auto) 0.9 L Absolute Monos (auto) 0.3 Absolute Eos (auto) 0.2 Absolute Basos (auto) 0 Absolute Nucleated RBC 0 Nucleated RBC % 0 Sodium 142 Potassium 4.4 Chloride 104 Carbon Dioxide 33 H Anion Gap 5 BUN 17 Creatinine 0.75 Est GFR ( Amer) 93.3 Est GFR (Non-Af Amer) 77.1 BUN/Creatinine Ratio 22.7 H Glucose 87 Calcium 9.3 Total Bilirubin 0.40 AST 15 ALT 3 L Alkaline Phosphatase 73 Total Protein 5.6 L Albumin 3.6 Globulin 2.0 Albumin/Globulin Ratio 1.8 Exam: HEENT: EOMI LUNGS: Clear HEART: regular rhythm ABDOMEN: Soft, +BS EXTREMITIES: Right ankle in cast. NEUROLOGIC: Resting tremor in legs. Exam non focal Assessment/Plan: 1. Right ankle release: NWB RLE. PT/OT. f/u with Dr. Hopper or [place] 2. Parkinsons Disease: Sinemet @ 0600, 0900, 1200, 1500, 1800, 2100 and 0130. Ativan. 3. DVT Prophylaxis: Lovenox 4. Analgesia: Oxycodone as needed/Tylenol 5. Asthma: Singulair/Albuterol 6. Dry eyes: ordered lubricant eye drops 7. Potassium: K was normal on routine labs. 8. Advanced Directives: Full code 9. Estimated LOS: 01/24/18 01/10/18 17:09
[2018-01-10] MEDS: Lactulose* 15 ML UDC PO SCH (18:08)
[2018-01-10] MEDS: Acetaminophen TAB* 325 MG PO PRN (19:20)
[2018-01-10] MEDS: Montelukast Sodium TAB* 10 MG PO SCH (20:55)
[2018-01-10] MEDS: Senna TAB PO PRN (21:01)
[2018-01-11] MEDS: LORazepam TAB(*) 1 MG PO SCH ×4 (01:30→21:05)
[2018-01-11] MEDS: Carbidopa/Levodop 25/100 MG TAB(*) PO SCH ×7 (01:30→21:02)
[2018-01-11] MEDS: Gabapentin CAP(*) 300 MG PO SCH ×4 (01:30→18:05)
[2018-01-11] MEDS: Omeprazole CAP* 20 MG PO SCH (06:01)
[2018-01-11] MEDS: Sertraline* 25 MG TAB PO SCH (06:02)
[2018-01-11] MEDS: Folic Acid TAB* 1 MG PO SCH (08:35)
[2018-01-11] MEDS: Enoxaparin(*) 40 MG/0.4 ML SYR SUBCUT SCH (08:35)
[2018-01-11] MEDS: Polyethylene Glycol 3350* 17 GM PACKET PO SCH (08:35)
[2018-01-11] MEDS: Calcium/Vitamin D TAB 250/125* TAB PO SCH (08:35)
[2018-01-11] MEDS: Cholecalciferol TAB* 1000 UNITS PO SCH (08:35)
[2018-01-11] MEDS: Docusate CAP* 100 MG PO SCH ×3 (08:35→21:03)
[2018-01-11] MEDS: Prenatal Vitamin TAB PO SCH (08:35)
--- NOTE | 2018-01-11 16:38 | PN ---
Progress Note Date of Service: 01/11/18 Note: SENDY GILLETTE was visited. Therapy notes read and reviewed. A little more emotionally grounded today. She feels like she is ok. Able to sit up. Current Medications: Active Medications Generic Name Dose Route Start Last Admin Trade Name Freq PRN Reason Stop Dose Admin Acetaminophen 650 mg 01/01/18 12:37 01/10/18 19:20 Tylenol Tab* PO 650 mg Q6H PRN Administration FEVER/PAIN Albuterol 2 puff 01/01/18 13:04 Ventolin Hfa Inhaler* INH Q6H PRN SOB/WHEEZING Calcium/Vitamin D 1 tab 01/02/18 09:00 01/11/18 08:35 Oscal D Tab 250/125* PO 1 tab DAILY ARNIE Administration Carbidopa/Levodopa 2.5 tab 01/01/18 18:00 01/11/18 01:30 Sinemet 25/100 Tab(*) PO 2.5 tab 0130,1800,2100 ARNIE Administration Carbidopa/Levodopa 2.5 tab 01/06/18 12:00 01/11/18 15:18 Sinemet 25/100 Tab(*) PO 2.5 tab 0600,0900,1200,1500 ARNIE Administration Cholecalciferol 2,000 units 01/02/18 09:00 01/11/18 08:35 Vitamin D Tab* PO 2,000 units DAILY ARNIE Administration Docusate Sodium 100 mg 01/01/18 14:00 01/11/18 12:06 Colace Cap* PO 100 mg TID ARNEI Administration Enoxaparin Sodium 40 mg 01/02/18 09:00 01/11/18 08:35 Lovenox(*) SUBCUT 40 mg Q24H ARNIE Administration Folic Acid 1 mg 01/02/18 09:00 01/11/18 08:35 Folvite Tab* PO 1 mg DAILY ARNIE Administration Gabapentin 600 mg 01/01/18 18:00 01/11/18 06:01 Neurontin Cap(*) PO 600 mg 0600,1800 ARNIE Administration Gabapentin 900 mg 01/06/18 12:00 01/11/18 12:05 Neurontin Cap(*) PO 900 mg 0130,1200 ARNIE Administration Lactulose 15 ml 01/01/18 18:00 01/10/18 18:08 Lactulose* PO Not Given 1800 ARNIE Lorazepam 1 mg 01/01/18 15:00 01/11/18 15:18 Ativan Tab(*) PO 1 mg 0130,0900,1500,2100 ARNIE Administration Magnesium Hydroxide 30 ml 01/01/18 12:37 Milk Of Magnesia Liq* PO Q6H PRN CONSTIPATION Montelukast Sodium 10 mg 01/01/18 21:00 01/10/18 20:55 Singulair Tab* PO 10 mg BEDTIME ARNIE Administration Multivitamins 1 tab 01/02/18 09:00 01/11/18 08:35 Vitamin Tab* PO 1 tab DAILY ARNIE Administration Omeprazole 20 mg 01/02/18 06:00 01/11/18 06:01 Prilosec Cap* PO 20 mg 0600 ARNIE Administration Oxycodone HCl 5 mg 01/01/18 17:58 Roxycodone Tab* PO Q4H PRN PAIN - MODERATE TO SEVERE Oxycodone HCl 10 mg 01/01/18 17:58 01/03/18 20:23 Roxycodone Tab* PO 10 mg Q4H PRN Administration PAIN - SEVERE Polyethylene Glycol/Electrolytes 17 gm 01/02/18 09:00 01/11/18 08:35 Miralax* PO 17 gm DAILY ARNIE Administration Polyvinyl Alcohol 1 drop 01/04/18 09:39 01/06/18 14:56 Polyvinyl Alcohol 1.4% Opth* BOTH EYES 1 drop Q2H PRN Administration DRY EYE Potassium Chloride 10 meq 01/12/18 09:00 Klor Con Er Tab* PO Q48H ARNIE Senna 2 tab 01/01/18 12:37 01/10/18 21:01 Senokot Tab* PO 2 tab BEDTIME PRN Administration CONSTIPATION Sertraline HCl 25 mg 01/02/18 06:00 01/11/18 06:02 Zoloft* PO 25 mg 0600 ARNIE Administration Vital Signs: Vital Signs Temp Pulse Resp BP Pulse Ox 97.8 F 83 18 129/61 99 01/11/18 15:23 01/11/18 15:23 01/11/18 16:13 01/11/18 15:23 01/11/18 15:23 Exam: HEENT: EOMI LUNGS: Clear HEART: regular rhythm ABDOMEN: Soft, +BS EXTREMITIES: Right ankle in cast. NEUROLOGIC: Resting tremor in legs. Exam non focal Assessment/Plan: 1. Right ankle release: NWB RLE. PT/OT. f/u with Dr. Hopper or [place] 2. Parkinsons Disease: Sinemet @ 0600, 0900, 1200, 1500, 1800, 2100 and 0130. Ativan. 3. DVT Prophylaxis: Lovenox 4. Analgesia: Oxycodone as needed/Tylenol 5. Asthma: Singulair/Albuterol 6. Dry eyes: ordered lubricant eye drops 7. Potassium: K was normal on routine labs. 8. Advanced Directives: Full code 9. Estimated LOS: 01/24/18 01/11/18 16:38
[2018-01-11] MEDS: Lactulose* 15 ML UDC PO SCH (18:08)
[2018-01-11] MEDS: Senna TAB PO PRN (21:04)
[2018-01-11] MEDS: Montelukast Sodium TAB* 10 MG PO SCH (21:06)
[2018-01-11] MEDS: oxyCODONE TAB* 5 MG TAB PO PRN (23:40)
[2018-01-12] MEDS: Carbidopa/Levodop 25/100 MG TAB(*) PO SCH ×7 (01:26→21:30)
[2018-01-12] MEDS: Gabapentin CAP(*) 300 MG PO SCH ×4 (01:27→18:03)
[2018-01-12] MEDS: LORazepam TAB(*) 1 MG PO SCH ×4 (01:28→21:33)
[2018-01-12] MEDS: Sertraline* 25 MG TAB PO SCH (06:09)
[2018-01-12] MEDS: Omeprazole CAP* 20 MG PO SCH (06:09)
[2018-01-12] MEDS: Polyethylene Glycol 3350* 17 GM PACKET PO SCH (08:35)
[2018-01-12] MEDS: Calcium/Vitamin D TAB 250/125* TAB PO SCH (09:06)
[2018-01-12] MEDS: Cholecalciferol TAB* 1000 UNITS PO SCH (09:08)
[2018-01-12] MEDS: Folic Acid TAB* 1 MG PO SCH (09:08)
[2018-01-12] MEDS: Docusate CAP* 100 MG PO SCH ×3 (09:08→21:32)
[2018-01-12] MEDS: Enoxaparin(*) 40 MG/0.4 ML SYR SUBCUT SCH (09:08)
[2018-01-12] MEDS: Potassium Chlor TAB* 10 MEQ TAB.ER PO SCH (09:09)
[2018-01-12] MEDS: Prenatal Vitamin TAB PO SCH (09:09)
[2018-01-12] MEDS: Acetaminophen TAB* 325 MG PO PRN (15:09)
--- NOTE | 2018-01-12 17:30 | PN ---
Progress Note Date of Service: 01/12/18 Note: SENDY GILLETTE was visited. Nursing notes read and reviewed. Will look into places in morning for her. Current Medications: Active Medications Generic Name Dose Route Start Last Admin Trade Name Freq PRN Reason Stop Dose Admin Acetaminophen 650 mg 01/01/18 12:37 01/12/18 15:09 Tylenol Tab* PO 650 mg Q6H PRN Administration FEVER/PAIN Albuterol 2 puff 01/01/18 13:04 Ventolin Hfa Inhaler* INH Q6H PRN SOB/WHEEZING Calcium/Vitamin D 1 tab 01/02/18 09:00 01/12/18 09:06 Oscal D Tab 250/125* PO 1 tab DAILY ARNIE Administration Carbidopa/Levodopa 2.5 tab 01/01/18 18:00 01/12/18 01:26 Sinemet 25/100 Tab(*) PO 2.5 tab 0130,1800,2100 ARNIE Administration Carbidopa/Levodopa 2.5 tab 01/06/18 12:00 01/12/18 15:06 Sinemet 25/100 Tab(*) PO 2.5 tab 0600,0900,1200,1500 ARNIE Administration Cholecalciferol 2,000 units 01/02/18 09:00 01/12/18 09:08 Vitamin D Tab* PO 2,000 units DAILY ARNIE Administration Docusate Sodium 100 mg 01/01/18 14:00 01/12/18 12:27 Colace Cap* PO 100 mg TID ARNIE Administration Enoxaparin Sodium 40 mg 01/02/18 09:00 01/12/18 09:08 Lovenox(*) SUBCUT 40 mg Q24H ARNIE Administration Folic Acid 1 mg 01/02/18 09:00 01/12/18 09:08 Folvite Tab* PO 1 mg DAILY ARNIE Administration Gabapentin 600 mg 01/01/18 18:00 01/12/18 06:07 Neurontin Cap(*) PO 600 mg 0600,1800 ARNIE Administration Gabapentin 900 mg 01/06/18 12:00 01/12/18 12:26 Neurontin Cap(*) PO 900 mg 0130,1200 ARNIE Administration Lactulose 15 ml 01/01/18 18:00 01/11/18 18:08 Lactulose* PO Not Given 1800 ARNIE Lorazepam 1 mg 01/01/18 15:00 01/12/18 15:06 Ativan Tab(*) PO 1 mg 0130,0900,1500,2100 ARNIE Administration Magnesium Hydroxide 30 ml 01/01/18 12:37 Milk Of Magnesia Liq* PO Q6H PRN CONSTIPATION Montelukast Sodium 10 mg 01/01/18 21:00 01/11/18 21:06 Singulair Tab* PO 10 mg BEDTIME ARNIE Administration Multivitamins 1 tab 01/02/18 09:00 01/12/18 09:09 Vitamin Tab* PO 1 tab DAILY ARNIE Administration Omeprazole 20 mg 01/02/18 06:00 01/12/18 06:09 Prilosec Cap* PO 20 mg 0600 ARNIE Administration Oxycodone HCl 5 mg 01/01/18 17:58 Roxycodone Tab* PO Q4H PRN PAIN - MODERATE TO SEVERE Oxycodone HCl 10 mg 01/01/18 17:58 01/11/18 23:40 Roxycodone Tab* PO 10 mg Q4H PRN Administration PAIN - SEVERE Polyethylene Glycol/Electrolytes 17 gm 01/02/18 09:00 01/12/18 08:35 Miralax* PO 17 gm DAILY ARNIE Administration Polyvinyl Alcohol 1 drop 01/04/18 09:39 01/06/18 14:56 Polyvinyl Alcohol 1.4% Opth* BOTH EYES 1 drop Q2H PRN Administration DRY EYE Potassium Chloride 10 meq 01/12/18 09:00 01/12/18 09:09 Klor Con Er Tab* PO 10 meq Q48H ARNIE Administration Senna 2 tab 01/01/18 12:37 01/11/18 21:04 Senokot Tab* PO 2 tab BEDTIME PRN Administration CONSTIPATION Sertraline HCl 25 mg 01/02/18 06:00 01/12/18 06:09 Zoloft* PO 25 mg 0600 ARNIE Administration Vital Signs: Vital Signs Temp Pulse Resp BP Pulse Ox 98.0 F 83 18 153/74 97 01/12/18 15:26 01/12/18 15:26 01/12/18 15:26 01/12/18 15:26 01/12/18 15:26 Exam: HEENT: EOMI LUNGS: Clear HEART: regular rhythm ABDOMEN: Soft, +BS EXTREMITIES: Right ankle in cast. NEUROLOGIC: Resting tremor in legs. Exam non focal Assessment/Plan: 1. Right ankle release: NWB RLE. PT/OT. f/u with Dr. Hopper or [place] 2. Parkinsons Disease: Sinemet @ 0600, 0900, 1200, 1500, 1800, 2100 and 0130. Ativan. 3. DVT Prophylaxis: Lovenox 4. Analgesia: Oxycodone as needed/Tylenol 5. Asthma: Singulair/Albuterol 6. Dry eyes: ordered lubricant eye drops 7. Potassium: K was normal on routine labs. 8. Advanced Directives: Full code 9. Estimated LOS: 01/24/18 01/12/18 17:30
[2018-01-12] MEDS: Lactulose* 15 ML UDC PO SCH (18:05)
[2018-01-12] MEDS: Senna TAB PO PRN (21:32)
[2018-01-12] MEDS: Montelukast Sodium TAB* 10 MG PO SCH (21:33)
[2018-01-12] MEDS: oxyCODONE TAB* 5 MG TAB PO PRN (23:20)
[2018-01-13] MEDS: Carbidopa/Levodop 25/100 MG TAB(*) PO SCH ×7 (01:35→21:16)
[2018-01-13] MEDS: Gabapentin CAP(*) 300 MG PO SCH ×4 (01:37→17:53)
[2018-01-13] MEDS: LORazepam TAB(*) 1 MG PO SCH ×4 (01:39→21:17)
[2018-01-13] MEDS: Acetaminophen TAB* 325 MG PO PRN (02:02)
[2018-01-13] MEDS: Omeprazole CAP* 20 MG PO SCH (06:41)
[2018-01-13] MEDS: Sertraline* 25 MG TAB PO SCH (06:42)
[2018-01-13] MEDS: Docusate CAP* 100 MG PO SCH ×3 (08:18→21:17)
[2018-01-13] MEDS: Polyethylene Glycol 3350* 17 GM PACKET PO SCH (08:18)
[2018-01-13] MEDS: Folic Acid TAB* 1 MG PO SCH (08:18)
[2018-01-13] MEDS: Calcium/Vitamin D TAB 250/125* TAB PO SCH (08:18)
[2018-01-13] MEDS: Cholecalciferol TAB* 1000 UNITS PO SCH (08:18)
[2018-01-13] MEDS: Prenatal Vitamin TAB PO SCH (08:19)
[2018-01-13] MEDS: Enoxaparin(*) 40 MG/0.4 ML SYR SUBCUT SCH (08:20)
[2018-01-13 16:24] VITALS: BP 159/79
--- NOTE | 2018-01-13 17:31 | PN ---
Progress Note Date of Service: 01/13/18 Note: SENDY GILLETTE was visited. Therapy notes read and reviewed. Will be going to [place] until she can WB on the right side. Current Medications: Active Medications Generic Name Dose Route Start Last Admin Trade Name Freq PRN Reason Stop Dose Admin Acetaminophen 650 mg 01/01/18 12:37 01/13/18 02:02 Tylenol Tab* PO 650 mg Q6H PRN Administration FEVER/PAIN Albuterol 2 puff 01/01/18 13:04 Ventolin Hfa Inhaler* INH Q6H PRN SOB/WHEEZING Calcium/Vitamin D 1 tab 01/02/18 09:00 01/13/18 08:18 Oscal D Tab 250/125* PO 1 tab DAILY ARNIE Administration Carbidopa/Levodopa 2.5 tab 01/01/18 18:00 01/13/18 01:35 Sinemet 25/100 Tab(*) PO 2.5 tab 0130,1800,2100 ARNIE Administration Carbidopa/Levodopa 2.5 tab 01/06/18 12:00 01/13/18 15:07 Sinemet 25/100 Tab(*) PO 2.5 tab 0600,0900,1200,1500 ARNIE Administration Cholecalciferol 2,000 units 01/02/18 09:00 01/13/18 08:18 Vitamin D Tab* PO 2,000 units DAILY ARNIE Administration Docusate Sodium 100 mg 01/01/18 14:00 01/13/18 13:39 Colace Cap* PO 100 mg TID ARNIE Administration Enoxaparin Sodium 40 mg 01/02/18 09:00 01/13/18 08:20 Lovenox(*) SUBCUT 40 mg Q24H ARNIE Administration Folic Acid 1 mg 01/02/18 09:00 01/13/18 08:18 Folvite Tab* PO 1 mg DAILY ARNIE Administration Gabapentin 600 mg 01/01/18 18:00 01/13/18 06:40 Neurontin Cap(*) PO 600 mg 0600,1800 ARNIE Administration Gabapentin 900 mg 01/06/18 12:00 01/13/18 12:24 Neurontin Cap(*) PO 900 mg 0130,1200 ARNIE Administration Lactulose 15 ml 01/01/18 18:00 01/12/18 18:05 Lactulose* PO Not Given 1800 ARNIE Lorazepam 1 mg 01/01/18 15:00 01/13/18 15:08 Ativan Tab(*) PO 1 mg 0130,0900,1500,2100 ARNIE Administration Magnesium Hydroxide 30 ml 01/01/18 12:37 Milk Of Magnesia Liq* PO Q6H PRN CONSTIPATION Montelukast Sodium 10 mg 01/01/18 21:00 01/12/18 21:33 Singulair Tab* PO 10 mg BEDTIME ARNIE Administration Multivitamins 1 tab 01/02/18 09:00 01/13/18 08:19 Vitamin Tab* PO 1 tab DAILY ARNIE Administration Omeprazole 20 mg 01/02/18 06:00 01/13/18 06:41 Prilosec Cap* PO 20 mg 0600 ARNIE Administration Oxycodone HCl 5 mg 01/01/18 17:58 Roxycodone Tab* PO Q4H PRN PAIN - MODERATE TO SEVERE Oxycodone HCl 10 mg 01/01/18 17:58 01/12/18 23:20 Roxycodone Tab* PO 10 mg Q4H PRN Administration PAIN - SEVERE Polyethylene Glycol/Electrolytes 17 gm 01/02/18 09:00 01/13/18 08:18 Miralax* PO 17 gm DAILY ARNIE Administration Polyvinyl Alcohol 1 drop 01/04/18 09:39 01/06/18 14:56 Polyvinyl Alcohol 1.4% Opth* BOTH EYES 1 drop Q2H PRN Administration DRY EYE Potassium Chloride 10 meq 01/12/18 09:00 01/12/18 09:09 Klor Con Er Tab* PO 10 meq Q48H ARNIE Administration Senna 2 tab 01/01/18 12:37 01/12/18 21:32 Senokot Tab* PO 2 tab BEDTIME PRN Administration CONSTIPATION Sertraline HCl 25 mg 01/02/18 06:00 01/13/18 06:42 Zoloft* PO 25 mg 0600 ARNIE Administration Vital Signs: Vital Signs Temp Pulse Resp BP Pulse Ox 98.1 F 88 20 159/79 96 01/13/18 16:22 01/13/18 16:22 01/13/18 16:22 01/13/18 16:22 01/13/18 16:22 Exam: HEENT: EOMI LUNGS: Clear HEART: regular rhythm ABDOMEN: Soft, +BS EXTREMITIES: Right ankle in cast. NEUROLOGIC: Resting tremor in legs. Exam non focal Assessment/Plan: 1. Right ankle release: NWB RLE. PT/OT. f/u with Dr. Hopper or [place] 2. Parkinsons Disease: Sinemet @ 0600, 0900, 1200, 1500, 1800, 2100 and 0130. Ativan. 3. DVT Prophylaxis: Lovenox 4. Analgesia: Oxycodone as needed/Tylenol 5. Asthma: Singulair/Albuterol 6. Dry eyes: ordered lubricant eye drops 7. Potassium: K was normal on routine labs. 8. Advanced Directives: Full code 9. Estimated LOS: 01/24/18 01/13/18 17:31
[2018-01-13] MEDS: Lactulose* 15 ML UDC PO SCH (17:54)
[2018-01-13] MEDS: Montelukast Sodium TAB* 10 MG PO SCH (21:17)
[2018-01-14] MEDS: LORazepam TAB(*) 1 MG PO SCH ×2 (01:32→09:01)
[2018-01-14] MEDS: Gabapentin CAP(*) 300 MG PO SCH ×2 (01:32→05:57)
[2018-01-14] MEDS: Carbidopa/Levodop 25/100 MG TAB(*) PO SCH ×3 (01:32→09:01)
[2018-01-14] MEDS: Sertraline* 25 MG TAB PO SCH (05:58)
[2018-01-14] MEDS: Omeprazole CAP* 20 MG PO SCH (05:58)
[2018-01-14] MEDS: Calcium/Vitamin D TAB 250/125* TAB PO SCH (09:00)
[2018-01-14] MEDS: Docusate CAP* 100 MG PO SCH (09:00)
[2018-01-14] MEDS: Potassium Chlor TAB* 10 MEQ TAB.ER PO SCH (09:00)
[2018-01-14] MEDS: Folic Acid TAB* 1 MG PO SCH (09:00)
[2018-01-14] MEDS: Cholecalciferol TAB* 1000 UNITS PO SCH (09:00)
[2018-01-14] MEDS: Prenatal Vitamin TAB PO SCH (09:00)
[2018-01-14] MEDS: Enoxaparin(*) 40 MG/0.4 ML SYR SUBCUT SCH (09:02)
[2018-01-14] MEDS: Polyethylene Glycol 3350* 17 GM PACKET PO SCH (09:06)
--- NOTE | 2018-01-14 09:58 | TRS ---
CC: Dr. Efren Caballero; [facility] in [place] * TRANSFER SUMMARY: DATE OF ADMISSION: 01/01/18 DATE OF DISCHARGE: 01/14/18 Patient is being transferred to [facility] in [place]. DISCHARGE DIAGNOSES: 1. Right ankle release. 2. Parkinson's disease. 3. 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 4. Asthma. 5. Chronic back pain. HISTORY OF ILLNESS AND HOSPITAL COURSE: For a complete history of the events leading up to her rehab stay, please see the history and physical dictated by me on 01/01/18. While on the rehab unit, the patient was largely medically stable. She did have some difficulties with pain. The patient was put on a low -dose potassium because she claimed she takes a potassium supplement at home and needed potassium. Her potassium serum began to rise so it was changed to every other day. The patient otherwise was medically stable. She was seen by Physical Therapy and Occupational Therapy. The patient had a great deal of difficulty consistently obeying the nonweightbearing order from her orthopedist. Sometimes she was able to do it, and sometimes she was not. Clearly, this fluctuation as the result of her Parkinson's disease. Because the patient was not able to master nonweightbearing and it did not seem that she would in the future, she is being transferred to [facility] to continue rehab on a slightly slower scale with the hope that she might return to independent living when she is able to weight bear on the right leg. DISCHARGE DIET: Regular. DISCHARGE MEDICATIONS: 1. Albuterol HFA inhaler two puffs every 6 hours as needed. 2. Os-Yakov D one tablet daily. 3. Sinemet 25/100 [id number] tablets at 1:30 in the morning, 6 a.m., 9 a.m., 12 noon, 3 p.m., 6 p.m., and 9 p.m. 4. Vitamin D 2000 units daily. 5. Lovenox 40 mg subcutaneously daily. 6. Folic acid 1 mg daily. 7. Neurontin 600 mg daily at 6 a.m. and 6 p.m., 900 mg daily at 1:30 in the morning and 12 p.m. 8. Lactulose 15 mL daily at 6 p.m. 9. Ativan 1 mg at 1:30 in the morning, 9 a.m., 3 p.m., and 9 p.m. 10. Singulair 10 mg at bedtime. 11. vitamin one tablet daily. 12. Omeprazole 20 mg daily. 13. Oxycodone 5 to 10 mg every 4 hours as needed. 14. MiraLax 17 g daily as needed. 15. Polyvinyl alcohol eye drops, one drop to both eyes every 4 hours as needed. 16. Potassium chloride 10 mEq every 48 hours. 17. Zoloft 25 mg every day at 6 a.m. SERVICES AFTER DISCHARGE: She should have restorative physical therapy and occupational therapy. Please note that she is nonweightbearing on the right leg. Follow up with Dr. Diaz Hopper, her orthopedic surgeon. She can also follow up with her primary care doctor, Dr. Efren Caballero. [id number]/[facility] #: [id number] MTDD
== END 2018-01-14 10:50 | DRG 561 ==
LOC: PMRU 11:59
PROVIDERS: ADMIT Physical Medicine & Rehabilitation; ATTEND Physical Medicine & Rehabilitation
PROC: F07Z5ZZ Bed Mobility Treatment (ICD-10-PCS; principal; 2018-01-01)
PROC: F07Z9ZZ Gait Training/Functional Ambulation Treatment (ICD-10-PCS; 2018-01-01)
PROC: F07Z8ZZ Transfer Training Treatment (ICD-10-PCS; 2018-01-01)
PROC: F07Z4ZZ Wheelchair Mobility Treatment (ICD-10-PCS; 2018-01-01)
PROC: F08Z0ZZ Bathing/Showering Techniques Treatment (ICD-10-PCS; 2018-01-01)
PROC: F08Z1ZZ Dressing Techniques Treatment (ICD-10-PCS; 2018-01-01)
PROC: F08Z3ZZ Feeding/Eating Treatment (ICD-10-PCS; 2018-01-01)
DX: Z47.89 Encounter for other orthopedic aftercare (principal); G20 Parkinson's disease; J45.909 Unspecified asthma, uncomplicated; M54.89 Other dorsalgia; H04.129 Dry eye syndrome of unspecified lacrimal gland; Z86.73 Personal history of transient ischemic attack (TIA), and cerebral infarction without residual deficits; Z79.899 Other long term (current) drug therapy; Z88.0 Allergy status to penicillin; Z88.8 Allergy status to other drugs, medicaments and biological substances
CPT/HCPCS: 36415; 80053; 82565; 84520; 85014; 85018; 85025; 85049; A9270-GY; J1650